=== PATIENT | male | born 1955 | race Caucasian/White ===

== ENCOUNTER 2017-02-17 19:55 | Emergency (ER) | payer MEDICARE ==
[~2017-02-17] VITALS: Ht 177.8 cm; Wt 111.8 kg
[2017-02-17 20:04] VITALS: BP 192/113; PULSE 99; RESP 12; TEMP 99; O2SAT 95
[2017-02-17] MEDS ORDERED: SODIUM CHLORIDE 0.9% FLUSH 10 ML FLUSH IV FLUSH PRN (20:15)
[2017-02-17] MEDS ORDERED: MORPHINE SULFATE 4 MG/ML INJ IV PUSH ONE (20:15)
[2017-02-17] MEDS ORDERED: ONDANSETRON HCL 4 MG/2 ML VIAL IVP ONE (20:15)
--- NOTE | 2017-02-17 20:18 | PD ---
HPI Chief Complaint: Injury Time Seen by Provider: 20:14 Travel History International Travel<30 days: No Contact w/Intl Traveler<30days: No Traveled to known affect area: No History of Present Illness HPI 62-year-old male presents to the emergency department status post fall from his scooter from being pulled over by his dog that he was walking. Patient fell sideways onto the lawn injuring his right shoulder. Patient has created a sling out of his belt, holding the shoulder in a position of comfort. Patient denies numbness tingling or weakness in the needle straightener strength on the right. Patient denies any other injury. He denies hitting his head or loss of consciousness. Pain in the shoulders currently an 8/. He has no known drug allergies. [facility]LY [facility] Social History Alcohol Use: No Tobacco Use: Yes Substance Use: No Allergies-Medications (Allergen,Severity, Reaction): Coded Allergies: No Known Allergies (Unverified , 02/17/17) Reported Meds & Prescriptions Reported Meds & Active Scripts Active Reported Aspirin 325 Mg Tab 325 Mg PO DAILY Metformin (Metformin HCl) 500 Mg Tab 500 Mg PO BIDPC With meals Lisinopril 20 Mg Tab 20 Mg PO DAILY Methadose (Methadone HCl) 40 Mg Tab 60 Mg PO BID Review of Systems Except as stated in HPI: all other systems reviewed are Neg General / Constitutional: No: Fever Eyes: No: Visual changes HENT: No: Headaches Cardiovascular: No: Chest Pain or Discomfort Respiratory: No: Shortness of Breath Gastrointestinal: No: Abdominal Pain Genitourinary: No: Dysuria Musculoskeletal: Positive: Arthralgias, Limited ROM, Pain Skin: No Rash Neurologic: No: Weakness Psychiatric: No: Depression Endocrine: No: Polydipsia Hematologic/Lymphatic: No: Easy Bruising Physical Exam Narrative GENERAL: Patient appears in mild to moderate distress. SKIN: Warm and dry. Normal color. Normal turgor. No abrasions. No ecchymosis. No open wounds. HEAD: Atraumatic. Normocephalic. EYES: Pupils equal and round. No scleral icterus. No injection or drainage. ENT: No nasal bleeding or discharge. Mucous membranes pink and moist. No dental injury. Pharynx is clear. Airway is patent. NECK: Trachea midline. No bony tenderness or step-off. Range of motion is full and nontender. CARDIOVASCULAR: Regular rate and rhythm. RESPIRATORY: No accessory muscle use. Clear to auscultation. Breath sounds equal bilaterally. GASTROINTESTINAL: Abdomen soft, non-tender, nondistended. Hepatic and splenic margins not palpable. MUSCULOSKELETAL: Extremities without clubbing, cyanosis, or edema. Question deformity in the right shoulder suggestive of dislocation. Range of motion of the right shoulder is very limited secondary to pain. Exam is limited as well. Patient has normal neurovascular exam of the right hand. NEUROLOGICAL: Awake and alert. No obvious cranial nerve deficits. Motor grossly within normal limits. Five out of 5 muscle strength in the arms and legs. Normal speech. PSYCHIATRIC: Appropriate mood and affect; insight and judgment normal. Data Data Last Documented VS Vital Signs Date Time Temp Pulse Resp B/P Pulse Ox O2 Delivery O2 Flow Rate FiO2 02/17/17 20:40 22 02/17/17 20:35 91 Room Air 02/17/17 20:14 02/17/17 20:04 99.0 99 Orders Complete Blood Count With Diff (02/17/17 20:12) Comprehensive Metabolic Panel (02/17/17 20:12) Prothrombin Time / Inr (Pt) (02/17/17 20:12) Act Partial Throm Time (Ptt) (02/17/17 20:12) Iv Access Insert/Monitor (02/17/17 20:12) Ecg Monitoring (02/17/17 20:12) Oximetry (02/17/17 20:12) NPO (02/17/17 20:12) Morphine Inj (Morphine Inj) (02/17/17 20:15) Ondansetron Inj (Zofran Inj) (02/17/17 20:15) Sodium Chloride 0.9% Flush (Ns Flush) (02/17/17 20:15) Shoulder, Complete (>2vws) (02/17/17 20:12) Ice/Cold Pack (02/17/17 20:12) Ketorolac Inj (Toradol Inj) (02/17/17 21:00) Splint Or Brace Apply/Monitor (02/17/17 20:52) Ketorolac Inj (Toradol Inj) (02/17/17 21:00) Labs Laboratory Tests Test 02/17/17 20:15 White Blood Count 10.0 TH/MM3 Red Blood Count 5.08 MIL/MM3 Hemoglobin 13.9 GM/DL Hematocrit 43.3 % Mean Corpuscular Volume 85.3 FL Mean Corpuscular Hemoglobin 27.4 PG Mean Corpuscular Hemoglobin 32.2 % Concent Red Cell Distribution Width 14.6 % Platelet Count 257 TH/MM3 Mean Platelet Volume 7.4 FL Neutrophils (%) (Auto) 62.2 % Lymphocytes (%) (Auto) 24.2 % Monocytes (%) (Auto) 8.1 % Eosinophils (%) (Auto) 2.7 % Basophils (%) (Auto) 2.8 % Neutrophils # (Auto) 6.2 TH/MM3 Lymphocytes # (Auto) 2.4 TH/MM3 Monocytes # (Auto) 0.8 TH/MM3 Eosinophils # (Auto) 0.3 TH/MM3 Basophils # (Auto) 0.3 TH/MM3 CBC Comment DIFF FINAL Differential Comment Sodium Level 135 MEQ/L Potassium Level 4.6 MEQ/L Chloride Level 98 MEQ/L Carbon Dioxide Level 26.8 MEQ/L Anion Gap 10 MEQ/L Blood Urea Nitrogen 18 MG/DL Creatinine 1.20 MG/DL Estimat Glomerular Filtration 62 ML/MIN Rate Random Glucose 193 MG/DL Calcium Level 8.8 MG/DL Total Bilirubin 0.3 MG/DL Aspartate Amino Transf 15 U/L (AST/SGOT) Alanine Aminotransferase 16 U/L (ALT/SGPT) Alkaline Phosphatase 73 U/L Total Protein 8.5 GM/DL Albumin 3.3 GM/DL [facility] Medical Decision Making Medical Screen Exam Complete: Yes Emergency Medical Condition: Yes Differential Diagnosis Fall. Shoulder contusion. Shoulder dislocation. Shoulder fracture. Narrative Course Patient is medically stable at time of exam. IV access is obtained and patient has CBC, CMP, and coagulation studies drawn. Patient is given 4 mg Zofran IV as well as 4 mg morphine IV. X-ray of the right shoulder is ordered. X-ray shows no acute fracture dislocation. There is a slight AC separation. Patient is placed in a sling and swath. Patient is given 30 mg Toradol IV. Patient to continue his methadone 60 mg 3 times a day. Patient also take ibuprofen 600 mg 4 times a day #40. Patient is to wear the sling and swath until seen by orthopedist. Patient is to ice the area frequently. Patient to call Dr. Booth for orthopedic follow-up. Diagnosis Primary Impression: Right shoulder injury Qualified Code: S49.91XA - Right shoulder injury, initial encounter Additional Impression: AC separation Qualified Code: S43.101A - AC separation, right, initial encounter Referrals: Daniel Booth MD Patient Instructions: General Instructions, Rotator Cuff Injury (ED) Additional Instructions: X-ray shows no acute fracture dislocation. There is a slight AC separation. Patient is placed in a sling and swath. Patient is given 30 mg Toradol IV. Patient is continue his methadone 60 mg 3 times a day. Patient also take ibuprofen 600 mg 4 times a day #40. Patient is to wear the sling and swath until seen by orthopedist. Patient is to ice the area frequently. Patient to call Dr. Booth for orthopedic follow-up. Med/Other Pt SpecificInfo: Prescription(s) given Scripts Ibuprofen 600 Mg [id number] Mg PO Q6H PRN (Pain/Inflammation) #40 TAB Prov:Rich Valdivia MD 02/17/17 Disposition: 01 DISCHARGE HOME Condition: Stable Zion Galvan February 17, 2017 20:18
[2017-02-17] MEDS ORDERED: METH40TA2 PO (20:21)
[2017-02-17] MEDS ORDERED: LISI-515 PO (20:21)
[2017-02-17] MEDS ORDERED: ASPI325T PO (20:21)
[2017-02-17] MEDS ORDERED: METF500T PO (20:21)
[2017-02-17 20:26] LABS: AUTOMATED NEUTROPHIL # 6.2 TH/MM3 (1.8-7.7); BASOPHIL # 0.3 TH/MM3 (0-0.2); BASOPHIL % 2.8 % (0.0-2.0); EOSINOPHIL # 0.3 TH/MM3 (0-0.4); EOSINOPHIL % 2.7 % (0.0-4.0); HEMATOCRIT 43.3 % (39.0-51.0); HEMO FLAGS DIFF FINAL; LYMPH % 24.2 % (9.0-44.0); LYMPHOCYTE # 2.4 TH/MM3 (1.0-4.8); MEAN CELL VOLUME 85.3 FL (80.0-100.0); MEAN CORPUSCULAR HEMOGLOBIN 27.4 PG (27.0-34.0); MEAN CORPUSCULAR HGB CONC 32.2 % (32.0-36.0); MONO % 8.1 % (0.0-8.0); NEUT % 62.2 % (16.0-70.0); PLATELET COUNT 257 TH/MM3 (150-450); RED BLOOD COUNT 5.08 MIL/MM3 (4.50-5.90); RED CELL DISTRIBUTION WIDTH 14.6 % (11.6-17.2)
[2017-02-17 20:35] VITALS: O2SAT 91
[2017-02-17 20:37] LABS: CHLORIDE 98 MEQ/L (98-107); POTASSIUM 4.6 MEQ/L (3.5-5.1); SODIUM (NA) 135 MEQ/L (136-145)
[2017-02-17 20:40] VITALS: RESP 22
[2017-02-17 20:41] LABS: ANION GAP 10 MEQ/L (5-15); BICARBONATE 26.8 MEQ/L (21.0-32.0); BLOOD UREA NITROGEN 18 MG/DL (7-18)
[2017-02-17 20:44] LABS: ALT (GPT) 16 U/L (12-78); AST (GOT) 15 U/L (15-37); GLOMERULAR FILTRATION RATE 62 ML/MIN (>89)
[2017-02-17 20:45] LABS: TOTAL BILIRUBIN ADULT 0.3 MG/DL (0.2-1.0)
[2017-02-17 20:46] LABS: ALKALINE PHOSPHATASE 73 U/L (45-117)
--- NOTE | 2017-02-17 20:50 | RADHPO ---
EXAM DATE/TIME: 02/17/2017 20:17 [facility] COMPARISON: No previous studies available for comparison. INDICATIONS : Right shoulder pain post fall yesterday. MEDICAL HISTORY : None. SURGICAL HISTORY : None. ENCOUNTER: Initial ACUITY: 2 days PAIN SCORE: 10/10 LOCATION: Right shoulder. FINDINGS: The glenohumeral relationship is intact with mild degenerative arthritic change.. Slight widening of the a.c. joint. Appears to be some radiodensity beneath the acromion which may be tendinous calcifica tion. The adjacent clavicle and ribs appear intact. CONCLUSION: Likely mild a.c. separation Leobardo Dominguez MD on February 17, 2017 at 20:46 Board Certified Radiologist. This report was verified electronically.
[2017-02-17] MEDS ORDERED: IBUP-232 PO (20:59)
[2017-02-17] MEDS ORDERED: KETOROLAC TROMETHAMINE 30 MG/ML (IVP) VIAL IV PUSH ONE (21:00)
[2017-02-17] MEDS ORDERED: KETOROLAC TROMETHAMINE 60 MG/2 ML (IM) VIAL IM ONE (21:00)
[2017-02-17 21:16] LABS: APTT (PATIENT) 27.5 SEC (24.3-30.1); PROTHROMBIN TIME - PATIENT 11.4 SEC (9.8-11.6)
== END 2017-02-17 21:15 | disposition home or self-care (01) ==
LOC: PHEFT 19:55
DX: S43.101A Unspecified dislocation of right acromioclavicular joint, initial encounter (principal); Z72.0 Tobacco use; W18.30XA Fall on same level, unspecified, initial encounter; Y93.K1 Activity, walking an animal; Y92.9 Unspecified place or not applicable; Y99.8 Other external cause status
CPT/HCPCS: 29240; 73030; 80053; 85025; 85610; 85730; 96374; 96375; 99283; J1885; J2270; J2405

== ENCOUNTER 2017-12-29 10:17 | Inpatient (IN) | payer MEDICARE ==
[~2017-12-29] VITALS: Ht 180.3 cm; Wt 109.0 kg
[~2017-12-29 10:17] MED LIST: ASPI-183 PO; IBUP-232 PO; LISI-515 PO; METF500T PO; METH40TA2 PO
[2017-12-29 11:33] VITALS: BP 163/80; PULSE 88; RESP 22; TEMP 98.5; O2SAT 93
--- NOTE | 2017-12-29 12:29 | RADRPT ---
EXAM DATE/TIME: 12/29/2017 12:04 [facility] COMPARISON: No previous studies available for comparison. INDICATIONS : Swelling of left foot. MEDICAL HISTORY : None. SURGICAL HISTORY : None. ENCOUNTER: Initial ACUITY: >1 year PAIN SCORE: 0/10 LOCATION: Bilateral chest FINDINGS: PA and lateral views of the chest demonstrate the lungs to be symmetrically aerated without evidence of mass, infiltrate or effusion. The cardiomediastinal contours are unremarkable. Osseous structure s are intact. CONCLUSION: No acute disease. Narayan Parry MD on December 29, 2017 at 12:27 Board Certified Radiologist. This report was verified electronically.
--- NOTE | 2017-12-29 12:32 | RADRPT ---
EXAM DATE/TIME: 12/29/2017 12:09 [facility] COMPARISON: No previous studies available for comparison. INDICATIONS : Pain and swelling of left foot. MEDICAL HISTORY : None. SURGICAL HISTORY : None. ENCOUNTER: Initial ACUITY: >1 year PAIN SCORE: 0/10 LOCATION: Left foot FINDINGS: Three view examination of the left foot demonstrates diffuse soft tissue swelling greatest involving the second toe. Small plantar calcaneal spur. Mild degenerative changes first metatarsal phalangeal j oint and interphalangeal joints. No fracture. The calcaneus is intact. Bony mineralization is karen l. CONCLUSION: 1. Soft tissue swelling greatest involving the second toe. 2. No fracture. 3. Plantar calcaneal spur. Narayan Parry MD on December 29, 2017 at 12:29 Board Certified Radiologist. This report was verified electronically.
[2017-12-29 13:04] LABS: AUTOMATED NEUTROPHIL # 10.7 TH/MM3 (1.8-7.7); BASOPHIL # 0.1 TH/MM3 (0-0.2); BASOPHIL % 0.6 % (0.0-2.0); EOSINOPHIL % 0.2 % (0.0-4.0); HEMATOCRIT 42.4 % (39.0-51.0); LYMPH % 13.2 % (9.0-44.0); LYMPHOCYTE # 1.8 TH/MM3 (1.0-4.8); MEAN CELL VOLUME 84.9 FL (80.0-100.0); MEAN PLATELET VOLUME 7.4 FL (7.0-11.0); MONO % 9.1 % (0.0-8.0); MONOCYTE # 1.3 TH/MM3 (0-0.9); NEUT % 76.9 % (16.0-70.0); PLATELET COUNT 208 TH/MM3 (150-450); RED BLOOD COUNT 4.99 MIL/MM3 (4.50-5.90); RED CELL DISTRIBUTION WIDTH 15.3 % (11.6-17.2); WHITE BLOOD COUNT 13.9 TH/MM3 (4.0-11.0)
[2017-12-29 13:14] LABS: BACTERIA, URINE RARE /hpf; BILIRUBIN, URINE NEG (NEG); BLOOD, URINE MOD (NEG); GLUCOSE,URINE NEG (NEG); HYALINE CAST, URINE 16 /lpf (RARE); KETONE, URINE NEG (NEG); MUCUS URINE MOD /lpf (OCC); NITRITE,URINE NEG (NEG); PH, URINE 5.5 (5.0-8.5); SQUAMOUS EPITHELIAL CELL URINE 1 /hpf (0-5); URINE COLOR DARK-YELLOW (YELLW/STRAW); URINE LEUKOCYTE ESTERASE NEG (NEG)
[2017-12-29 13:20] LABS: ALBUMIN 3.3 GM/DL (3.4-5.0); ALT (GPT) 15 U/L (12-78); AST (GOT) 12 U/L (15-37); BICARBONATE 28.8 MEQ/L (21.0-32.0); BLOOD UREA NITROGEN 24 MG/DL (7-18); CHLORIDE 92 MEQ/L (98-107); CREATININE 1.48 MG/DL (0.60-1.30); GLOMERULAR FILTRATION RATE 48 ML/MIN (>89); GLUCOSE,RANDOM 132 MG/DL (74-106); SODIUM (NA) 131 MEQ/L (136-145)
[2017-12-29 13:22] LABS: ALKALINE PHOSPHATASE 69 U/L (45-117); TOTAL BILIRUBIN ADULT 0.9 MG/DL (0.2-1.0); TOTAL PROTEIN 9.1 GM/DL (6.4-8.2)
[2017-12-29] MEDS ORDERED: PIPERACIL-TAZO 4.5 GM PREMIX 100 ML IV STA (17:03)
[2017-12-29] MEDS ORDERED: VANCOMYCIN INJ 1,000 MG in SODIUM CHLOR 0.9% 250 ML INJ 250 ML IV STA (17:03)
--- NOTE | 2017-12-29 17:07 | PD ---
HPI Chief Complaint: Pain: Acute or Chronic Time Seen by Provider: 17:03 Travel History International Travel<30 days: No Contact w/Intl Traveler<30days: No History of Present Illness HPI 62-year-old male patient with history of diabetes, presents to the ER today because he has noticed over several days that his left foot ulcer which has been chronic is becoming more painful and red and swollen. He has been having fevers. He denies any chest pains, trouble breathing, or other issues. Modifying Factors: None Associated Signs & Symptoms: Diabetic foot ulcer infection Risk Factors: Diabetic PFSH Past Medical History Hx Anticoagulant Therapy: Yes Cardiac Catheterization: Yes Cardiovascular Problems: Yes Coronary Artery Disease: Yes Diabetes: Yes Diminished Hearing: Yes Hypertension: Yes Musculoskeletal: Yes Immunizations Current: No Past Surgical History Coronary Stent: Yes Other Surgery: Yes (medication pump) Social History Alcohol Use: No Tobacco Use: Yes Substance Use: No Allergies-Medications (Allergen,Severity, Reaction): Coded Allergies: No Known Allergies (Unverified , 02/17/17) Reported Meds & Prescriptions Reported Meds & Active Scripts Active Ibuprofen 600 Mg Tab 600 Mg PO Q6H PRN Reported Aspirin 325 Mg Tab 325 Mg PO DAILY Metformin (Metformin HCl) 500 Mg Tab 500 Mg PO BIDPC With meals Lisinopril 20 Mg Tab 20 Mg PO DAILY Methadose (Methadone HCl) 40 Mg Tab 60 Mg PO BID Review of Systems Except as stated in HPI: all other systems reviewed are Neg Physical Exam Narrative GENERAL: Well-developed elderly white male patient currently in mild distress. Awake and oriented 3. SKIN: Focused skin assessment warm/dry. There is a 1 cm ulcer at the plantar surface of the left foot, with surrounding erythema and edema over the distal foot. Tender to palpation. HEAD: Atraumatic. Normocephalic. EYES: Pupils equal and round. No scleral icterus. No injection or drainage. ENT: No nasal bleeding or discharge. Mucous membranes pink and moist. NECK: Trachea midline. No JVD. CARDIOVASCULAR: Regular rate and rhythm. No murmur appreciated. RESPIRATORY: No accessory muscle use. Clear to auscultation. Breath sounds equal bilaterally. GASTROINTESTINAL: Abdomen soft, non-tender, nondistended. Hepatic and splenic margins not palpable. MUSCULOSKELETAL: No obvious deformities. No clubbing. No cyanosis. No edema. NEUROLOGICAL: Awake and alert. No obvious cranial nerve deficits. Motor grossly within normal limits. Normal speech. PSYCHIATRIC: Appropriate mood and affect; insight and judgment normal. Data Data Last Documented VS Vital Signs Date Time Temp Pulse Resp B/P (MAP) Pulse Ox O2 Delivery O2 Flow Rate FiO2 12/29/17 11:33 98.5 88 22 163/80 (107) 93 Orders Orders Foot, Complete ([id number]) (12/29/17 ) Sepsis Workup Initiated (12/29/17 ) Complete Blood Count With Diff (12/29/17 11:35) Comprehensive Metabolic Panel (12/29/17 11:35) Lactic Acid Sepsis Protocol (12/29/17 11:35) Urinalysis - C+S If Indicated (12/29/17 11:35) Blood Culture (12/29/17 11:35) Chest, Pa & Lat (12/29/17 11:35) Urine Culture (12/29/17 12:30) Sodium Chlor 0.9% 1000 Ml Inj (Ns 1000 M (12/29/17 17:15) Piperacil-Tazo 4.5 Gm Premix (Zosyn 4.5 (12/29/17 17:03) Vancomycin Inj (Vancomycin Inj) (12/29/17 17:03) Admit Order (Ed Use Only) (12/29/17 17:39) Labs Laboratory Tests Test 12/29/17 11:30 12/29/17 12:30 Lactic Acid Level 1.9 mmol/L White Blood Count 13.9 TH/MM3 Red Blood Count 4.99 MIL/MM3 Hemoglobin 14.0 GM/DL Hematocrit 42.4 % Mean Corpuscular Volume 84.9 FL Mean Corpuscular Hemoglobin 28.0 PG Mean Corpuscular Hemoglobin Concent 33.0 % Red Cell Distribution Width 15.3 % Platelet Count 208 TH/MM3 Mean Platelet Volume 7.4 FL Neutrophils (%) (Auto) 76.9 % Lymphocytes (%) (Auto) 13.2 % Monocytes (%) (Auto) 9.1 % Eosinophils (%) (Auto) 0.2 % Basophils (%) (Auto) 0.6 % Neutrophils # (Auto) 10.7 TH/MM3 Lymphocytes # (Auto) 1.8 TH/MM3 Monocytes # (Auto) 1.3 TH/MM3 Eosinophils # (Auto) 0.0 TH/MM3 Basophils # (Auto) 0.1 TH/MM3 CBC Comment DIFF FINAL Differential Comment Urine Color DARK-YELLOW Urine Turbidity HAZY Urine pH 5.5 Urine Specific [place] 1.029 Urine Protein 100 mg/dL Urine Glucose (UA) NEG mg/dL Urine Ketones NEG mg/dL Urine Occult Blood MOD Urine Nitrite NEG Urine Bilirubin NEG Urine Urobilinogen 2.0 MG/DL Urine Leukocyte Esterase NEG Urine RBC 7 /hpf Urine WBC 3 /hpf Urine Squamous Epithelial Cells 1 /hpf Urine Bacteria RARE /hpf Urine Hyaline Casts 16 /lpf Urine Granular Casts 1 /lpf Urine Mucus MOD /lpf Microscopic Urinalysis Comment CATH-CULTURE IND Blood Urea Nitrogen 24 MG/DL Creatinine 1.48 MG/DL Random Glucose 132 MG/DL Total Protein 9.1 GM/DL Albumin 3.3 GM/DL Calcium Level 9.0 MG/DL Alkaline Phosphatase 69 U/L Aspartate Amino Transf (AST/SGOT) 12 U/L Alanine Aminotransferase (ALT/SGPT) 15 U/L Total Bilirubin 0.9 MG/DL Sodium Level 131 MEQ/L Potassium Level 3.8 MEQ/L Chloride Level 92 MEQ/L Carbon Dioxide Level 28.8 MEQ/L Anion Gap 10 MEQ/L Estimat Glomerular Filtration Rate 48 ML/MIN MDM Medical Decision Making Medical Screen Exam Complete: Yes Emergency Medical Condition: Yes Medical Record Reviewed: Yes Interpretation(s) Laboratory Tests Test 12/29/17 11:30 12/29/17 12:30 White Blood Count 13.9 TH/MM3 (4.0-11.0) Neutrophils (%) (Auto) 76.9 % (16.0-70.0) Monocytes (%) (Auto) 9.1 % (0.0-8.0) Neutrophils # (Auto) 10.7 TH/MM3 (1.8-7.7) Monocytes # (Auto) 1.3 TH/MM3 (0-0.9) Urine Color DARK-YELLOW (YELLW/STRAW) Urine Turbidity HAZY (CLEAR) Urine Protein 100 mg/dL (NEG-TRACE) Urine Occult Blood MOD (NEG) Urine RBC 7 /hpf (0-3) Urine Bacteria RARE /hpf (NONE) Urine Mucus MOD /lpf (OCC) Blood Urea Nitrogen 24 MG/DL (7-18) Creatinine 1.48 MG/DL (0.60-1.30) Random Glucose 132 MG/DL (74-106) Total Protein 9.1 GM/DL (6.4-8.2) Albumin 3.3 GM/DL (3.4-5.0) Aspartate Amino Transf (AST/SGOT) 12 U/L (15-37) Sodium Level 131 MEQ/L (136-145) Chloride Level 92 MEQ/L (98-107) Estimat Glomerular Filtration Rate 48 ML/MIN (>89) Last 24 hours Impressions Chest X-Ray 12/29/17 1135 Signed Impressions: Service Date/Time: Friday, December 29, 2017 12:04 - CONCLUSION: No acute disease. Narayan Parry MD Foot X-Ray 12/29/17 0000 Signed Impressions: Service Date/Time: Friday, December 29, 2017 12:09 - CONCLUSION: 1. Soft tissue swelling greatest involving the second toe. 2. No fracture. 3. Plantar calcaneal spur. Narayan Parry MD Differential Diagnosis Sepsis versus osteomyelitis versus cellulitis Narrative Course IV antibiotics were initiated the ER after cultures were drawn. X-ray did not show signs of osteomyelitis. At this point, plan would be to admit patient for further treatment. Patient has leukocytosis and lactate elevation, signs of sepsis as well. Case is discussed with Dr. Ryder for admission. Diagnosis Primary Impression: Diabetic foot ulcer Additional Impressions: Cellulitis of foot Sepsis Admitting Information Admitting Physician Requests: Admit Tracey Fleming MD Dec 29, 2017 17:07
[2017-12-29] MEDS ORDERED: SODIUM CHLOR 0.9% 1000 ML INJ 1,000 ML IV ONE (17:15)
[2017-12-29] MEDS ORDERED: SODIUM CHLORIDE 0.9% FLUSH 10 ML FLUSH IV FLUSH PRN (17:45)
[2017-12-29] MEDS ORDERED: ONDANSETRON HCL 4 MG/2 ML VIAL IVP PRN (17:45)
[2017-12-29] MEDS ORDERED: BISACODYL 10 MG SUPP RECTAL PRN (17:45)
[2017-12-29] MEDS ORDERED: Vancomycin Consult Pharmacy 1 EA OTHER SCH (17:45)
[2017-12-29] MEDS ORDERED: SENNOSIDES 8.6 MG TAB PO PRN (17:45)
[2017-12-29] MEDS ORDERED: MAGNESIUM HYDROXIDE SUSP 30 ML CUP PO PRN (17:45)
[2017-12-29] MEDS ORDERED: NALOXONE HCL 0.4 MG/ML AMP IV PUSH PRN (17:45)
[2017-12-29] MEDS ORDERED: LACTULOSE SYRUP 20 GM/30 ML CUP PO PRN (17:45)
[2017-12-29 18:26] VITALS: BP 176/85; PULSE 90; RESP 18; O2SAT 95
[2017-12-29 18:50] VITALS: BP 172/84
[2017-12-29] MEDS: INSULIN ASPART SUPPLEMENTAL SCALE SQ SCH (21:00)
[2017-12-29] MEDS ORDERED: VANCOMYCIN 1,000 MG/NS 250 ML IV ONE ×2 (21:15)
[2017-12-29] MEDS: SODIUM CHLORIDE 0.9% FLUSH 10 ML FLUSH IV FLUSH SCH (21:38)
--- NOTE | 2017-12-29 22:48 | HHI.HP ---
[facility] Service [facility] Hospitalists Primary Care Physician Veto Lim MD Admission Diagnosis Diabetic foot infection/sepsis Diagnoses: (1) Cellulitis of foot Chief Complaint: Left second toe erythema and edema Travel History International Travel<30 Days: No Contact w/Intl Traveler <30 Da: No History of Present Illness Mr. Kendall is a 62-year-old male with a history of type 2 diabetes mellitus , coronary artery disease status post coronary stent placement 1995, hypertension, and chronic back pain who presented to the emergency room upon the recommendation of his supervisor [employer] to have his left second toe evaluated for cellulitis. He is unable to tell me the name of his supervisor [employer] but states that she does not do rounds here at [facility]. The patient is being admitted with podiatry consultation under the hospitalist service. The patient tells me that about 3 years ago, he stepped on a nail that penetrated his second toe and he had cellulitis following that. And eventually was effectively treated and he is had no further problems over the last couple of years. He noticed on Thursday night that the second toe on his left foot was starting to swell. By Thursday, it was now discolored red. He made an appointment on Thursday to see his supervisor [employer] Thursday when he saw her in the office she referred him directly to the emergency room. He also reports accompanying fever as high as 103, chills, fatigue, and generalized malaise. He denies any nausea, vomiting, diarrhea, black or bloody stools. He does have a history of left lower extremity DVT in 1988 and was on Coumadin for a short period of time. Left lower extremity is more swollen than the right and has some calf tightness noted upon examination. He reports inability to to feel much of anything from a prior back surgery in which he had multiple lumbar vertebral fusions. He also states he takes methadone 20 mg 3 times daily as needed for pain. His last dose of methadone was this morning. His pharmacy is [facility] on [address] in [facility]. We will need to verify his dosage when they open tomorrow. Methadone is obtained through a physician in [facility] Dr. Thompson. Review of Systems Except as stated in HPI: all other systems reviewed are Neg Past Family Social History Past Medical History type 2 diabetes mellitus, coronary artery disease status post coronary stent placement 1995, left lower extremity DVT in 1988, hypertension, and chronic back pain Denies asthma, COPD, liver problems, kidney problems, PE, CVA, seizures, thyroid problems, or cancer . Past Surgical History Coronary stent placed in 1995 Morphine pump placed 1995-has not been used since that time Right knee repair 1980s L1 through 6 fused November 07, 1988 . Reported Medications . Reported Meds & Active Scripts Active Reported Aspirin 325 Mg Tab 325 Mg PO DAILY Metformin (Metformin HCl) 500 Mg Tab 500 Mg PO BIDPC With meals Lisinopril 20 Mg Tab 20 Mg PO DAILY Methadose (Methadone HCl) 40 Mg Tab 60 Mg PO BID Allergies: Coded Allergies: No Known Allergies (Unverified Allergy, Unknown, 12/29/17) Family History Grandfather with a history of cancer and coronary artery disease Father with a history of coronary artery disease Denies family history of diabetes mellitus . Social History Tobacco: Has smoked 1/2-1 pack per day for 50 years Alcohol: Denies drinking alcohol Illicit Drugs: Reports history of cocaine and heroin abuse 35 years ago . Physical Exam Vital Signs Vital Signs Date Time Temp Pulse Resp B/P (MAP) Pulse Ox O2 Delivery O2 Flow Rate FiO2 12/29/17 18:50 80 18 172/84 (113) 97 12/29/17 18:26 90 18 176/85 (115) 95 Room Air 12/29/17 11:33 98.5 88 22 163/80 (107) 93 Physical Exam GENERAL: This is a disheveled appearing 62-year-old male patient, in no apparent distress. SKIN: No rashes. Cool and dry. Left second toe with significant erythema and edema extending up midway on the dorsal surface of the left foot. HEAD: Atraumatic. Normocephalic. EYES: No scleral icterus. No injection or drainage. ENT: Nose without bleeding, purulent drainage. NECK: Trachea midline. No JVD. CARDIOVASCULAR: Regular rate and rhythm without murmurs, gallops, or rubs. RESPIRATORY: Breath sounds diminished throughout lung kulkarni equal bilaterally. GASTROINTESTINAL: Abdomen soft, non-tender, nondistended. No guarding. MUSCULOSKELETAL: Left lower extremity with dark discoloration consistent with peripheral venous disease; left calf feels tight and somewhat warm and left lower extremity is more edematous than right. The patient is unable to feel more than pressure sensations and tightness in the lower extremities. Right lower extremity with no significant abnormalities. NEUROLOGICAL: Awake and alert. Motor and sensory grossly within normal limits. Normal speech. . Laboratory Laboratory Tests Test 12/29/17 11:30 12/29/17 12:30 Lactic Acid Level 1.9 White Blood Count 13.9 Red Blood Count 4.99 Hemoglobin 14.0 Hematocrit 42.4 Mean Corpuscular Volume 84.9 Mean Corpuscular Hemoglobin 28.0 Mean Corpuscular Hemoglobin Concent 33.0 Red Cell Distribution Width 15.3 Platelet Count 208 Mean Platelet Volume 7.4 Neutrophils (%) (Auto) 76.9 Lymphocytes (%) (Auto) 13.2 Monocytes (%) (Auto) 9.1 Eosinophils (%) (Auto) 0.2 Basophils (%) (Auto) 0.6 Neutrophils # (Auto) 10.7 Lymphocytes # (Auto) 1.8 Monocytes # (Auto) 1.3 Eosinophils # (Auto) 0.0 Basophils # (Auto) 0.1 CBC Comment DIFF FINAL Differential Comment Urine Color DARK-YELLOW Urine Turbidity HAZY Urine pH 5.5 Urine Specific [place] 1.029 Urine Protein 100 Urine Glucose (UA) NEG Urine Ketones NEG Urine Occult Blood MOD Urine Nitrite NEG Urine Bilirubin NEG Urine Urobilinogen 2.0 Urine Leukocyte Esterase NEG Urine RBC 7 Urine WBC 3 Urine Squamous Epithelial Cells 1 Urine Bacteria RARE Urine Hyaline Casts 16 Urine Granular Casts 1 Urine Mucus MOD Microscopic Urinalysis Comment CATH-CULTURE IND Blood Urea Nitrogen 24 Creatinine 1.48 Random Glucose 132 Total Protein 9.1 Albumin 3.3 Calcium Level 9.0 Alkaline Phosphatase 69 Aspartate Amino Transf (AST/SGOT) 12 Alanine Aminotransferase (ALT/SGPT) 15 Total Bilirubin 0.9 Sodium Level 131 Potassium Level 3.8 Chloride Level 92 Carbon Dioxide Level 28.8 Anion Gap 10 Estimat Glomerular Filtration Rate 48 Date/Time Source Procedure Growth Status 12/29/17 12:35 Blood Peripheral Aerobic Blood Culture Pending Received 12/29/17 12:35 Blood Peripheral Anaerobic Blood Culture Pending Received 12/29/17 12:30 Urine Catheterized Urine Urine Culture Pending Worksheet Result Diagram: 12/29/17 1230 12/29/17 1230 Imaging Last Impressions Chest X-Ray 12/29/17 1135 Signed Impressions: Service Date/Time: Friday, December 29, 2017 12:04 - CONCLUSION: No acute disease. Narayan Parry MD Foot X-Ray 12/29/17 0000 Signed Impressions: Service Date/Time: Friday, December 29, 2017 12:09 - CONCLUSION: 1. Soft tissue swelling greatest involving the second toe. 2. No fracture. 3. Plantar calcaneal spur. Narayan Parry MD Capagnes VTE Risk Assessment Caprini VTE Risk Assessment: Mod/High Risk (score >= 2) Caprini Risk Assessment Model Point Value = 1 Point Value = 2 Point Value = 3 Point Value = 5 Age 41-60 Minor surgery BMI > 25 kg/m2 Swollen legs Varicose veins or History of unexplained or recurrent spontaneous Oral contraceptives or hormone replacement Sepsis (< 1 month) Serious lung disease, including pneumonia (< 1 month) Abnormal pulmonary function Acute myocardial infarction Congestive heart failure (< 1 month) History of inflammatory bowel disease Medical patient at bed rest Age 61-74 Arthroscopic surgery Major open surgery (> 45 min) Laparoscopic surgery (> 45 min) Malignancy Confined to bed (> 72 hours) Immobilizing plaster cast Central venous access Age >= 75 History of VTE Family history of VTE Factor V Leiden Prothrombin [id number] Lupus anticoagulant Anticardiolipin antibodies Elevated serum homocysteine Heparin-induced thrombocytopenia Other congenital or acquired thrombophilia Stroke (< 1 month) Elective arthroplasty Hip, pelvis, or leg fracture Acute spinal cord injury (< 1 month) Prophylaxis Regimen Total Risk Factor Score Risk Level Prophylaxis Regimen 0-1 Low Early ambulation 2 Moderate Order ONE of the following: *Sequential Compression Device (SCD) *Heparin 5000 units SQ BID 3-4 Higher Order ONE of the following medications: *Heparin 5000 units SQ TID *Enoxaparin/Lovenox 40 mg SQ daily (WT < 150 kg, CrCl > 30 mL/min) *Enoxaparin/Lovenox 30 mg SQ daily (WT < 150 kg, CrCl > 10-29 mL/min) *Enoxaparin/Lovenox 30 mg SQ BID (WT < 150 kg, CrCl > 30 mL/min) AND/OR *Sequential Compression Device (SCD) 5 or more Highest Order ONE of the following medications: *Heparin 5000 units SQ TID (Preferred with Epidurals) *Enoxaparin/Lovenox 40 mg SQ daily (WT < 150 kg, CrCl > 30 mL/min) *Enoxaparin/Lovenox 30 mg SQ daily (WT < 150 kg, CrCl > 10-29 mL/min) *Enoxaparin/Lovenox 30 mg SQ BID (WT < 150 kg, CrCl > 30 mL/min) AND *Sequential Compression Device (SCD) Assessment and Plan Assessment and Plan Mr. Kendall is a 62-year-old male with a history of type 2 diabetes mellitus , coronary artery disease status post coronary stent placement 1995, hypertension, and chronic back pain who presented to the emergency room upon the recommendation of his supervisor [employer] to have his left second toe evaluated for cellulitis. The patient is being admitted with podiatry consultation under the hospitalist service. Left second toe cellulitis -Left foot x-ray demonstrates soft tissue swelling greatest involving second toe , no fracture, and plantar calcaneus heel spur -Antibiotics: IV vancomycin and Zosyn -Consult podiatry - patient follows with someone as an outpatient but is unable to tell me her name only that she does not round here at [facility] -Patient will be n.p.o. after midnight except meds in the event that any procedures need to be done in the morning by podiatry Left lower extremity swelling with history of DVT in 1988 -We will obtain Doppler ultrasound to rule out DVT Poorly controlled hypertension -Blood pressures 160s to 170s over 80s -Resume home lisinopril -As needed clonidine for blood pressure greater than 160/100 as long as heart rate is over 60 -Monitor trends in blood pressure readings and adjust treatments as indicated Acute kidney injury -BUN 24, creatinine 1.48, estimated GFR 48 -Received fluid bolus of normal saline 1 L in the ER -Avoid nephrotoxins -Recheck BMP in a.m. and follow results -Consider nephrology referral if symptoms persist Tobacco abuse -Consult extensively regarding adverse health effects of smoking -cessation advised -patient states he will not quit despite risks Chronic back pain -Patient states he takes methadone 20 mg 3 times daily p.o. as needed for pain - will need to verify dosage with [facility] on [facility] when the pharmacy opens in the morning -Morphine 3 mg IV every 3 hours as needed for pain greater than 4 DVT prophylaxis -Await Doppler ultrasound results Discussed Condition With Patient and Dr. Plata . Physician Certification 2 Midnight Certification Type: Admission for Inpatient Services Order for Inpatient Services The services are ordered in accordance with Medicare regulations or non- Medicare payer requirements, as applicable. In the case of services not specified as inpatient-only, they are appropriately provided as inpatient services in accordance with the 2-midnight benchmark. Estimated LOS (days): 3 days is the estimated time the patient will need to remain in the hospital, assuming treatment plan goals are met and no additional complications. Post-Hospital Plan: Home Yaz Powell Dec 29, 2017 22:48
[2017-12-29] MEDS ORDERED: MORPHINE SULFATE 4 MG/ML INJ IV PUSH PRN (23:30)
--- NOTE | 2017-12-29 23:46 | RADRPT ---
EXAM DATE/TIME: 12/29/2017 23:08 [place] COMPARISON: No previous studies available for comparison. EXTERNAL COMPARISON : [facility], US LEG, BILATERAL VENOUS, May 02, 2014[facility], US LEG BILATERAL VENO US, January 26, 2014. INDICATIONS : Left leg swelling. MEDICAL HISTORY : Myocardial infarction. Hypertension. Hearing loss. Numbness. Coronary artery disease. Anticoagula nt therapy. Arthritis. Diabetes. SURGICAL HISTORY : Coronary artery stent. Fusion, lumbar. Right knee replacement. ENCOUNTER: Initial ACUITY: 1 day PAIN SCORE: 1/10 LOCATION: Left leg. TECHNIQUE: Venous ultrasound of the leg was performed from the inguinal ligament to the proximal calf. Real-nakita e, color Doppler and spectral tracing, compression and augmentation techniques were used. FINDINGS: There is normal compressibility of the deep venous system from the inguinal region to the proximal ca lf. No echogenic clot is seen in the lumen of the common femoral, femoral, popliteal, and posterior tibial veins. There is a normal response of the venous system to proximal and distal augmentation an d respiration. CONCLUSION: Negative for deep venous thrombosis. Adam Barr MD on December 29, 2017 at 23:44 Board Certified Radiologist. This report was verified electronically.
[2017-12-30] MEDS: PIPERACIL-TAZO 3.375 GM PREMIX 50 ML IV SCH ×4 (00:49→18:39)
[2017-12-30 02:11] VITALS: BP 137/62; PULSE 74; RESP 18; TEMP 100.4; O2SAT 90
[2017-12-30 05:54] VITALS: BP 143/75; PULSE 75; RESP 20; TEMP 98.6; O2SAT 90
[2017-12-30 06:14] LABS: AUTOMATED NEUTROPHIL # 8.4 TH/MM3 (1.8-7.7); BASOPHIL % 0.4 % (0.0-2.0); EOSINOPHIL # 0.1 TH/MM3 (0-0.4); EOSINOPHIL % 1.2 % (0.0-4.0); HEMATOCRIT 36.3 % (39.0-51.0); HEMOGLOBIN 11.9 GM/DL (13.0-17.0); LYMPH % 14.2 % (9.0-44.0); LYMPHOCYTE # 1.6 TH/MM3 (1.0-4.8); MEAN CELL VOLUME 84.7 FL (80.0-100.0); MEAN CORPUSCULAR HEMOGLOBIN 27.8 PG (27.0-34.0); MEAN CORPUSCULAR HGB CONC 32.8 % (32.0-36.0); MEAN PLATELET VOLUME 7.3 FL (7.0-11.0); MONO % 10.9 % (0.0-8.0); MONOCYTE # 1.2 TH/MM3 (0-0.9); NEUT % 73.3 % (16.0-70.0); PLATELET COUNT 185 TH/MM3 (150-450); RED BLOOD COUNT 4.29 MIL/MM3 (4.50-5.90); RED CELL DISTRIBUTION WIDTH 15.1 % (11.6-17.2); WHITE BLOOD COUNT 11.4 TH/MM3 (4.0-11.0)
[2017-12-30 06:40] LABS: ALBUMIN 2.6 GM/DL (3.4-5.0); AST (GOT) 12 U/L (15-37); BICARBONATE 24.8 MEQ/L (21.0-32.0); BLOOD UREA NITROGEN 22 MG/DL (7-18); CALCIUM 8.3 MG/DL (8.5-10.1); CHLORIDE 99 MEQ/L (98-107); CREATININE 1.15 MG/DL (0.60-1.30); GLOMERULAR FILTRATION RATE 65 ML/MIN (>89); GLUCOSE,RANDOM 97 MG/DL (74-106); SODIUM (NA) 133 MEQ/L (136-145)
[2017-12-30 06:41] LABS: ALT (GPT) 13 U/L (12-78)
[2017-12-30 06:52] LABS: ALKALINE PHOSPHATASE 56 U/L (45-117); TOTAL BILIRUBIN ADULT 0.8 MG/DL (0.2-1.0); TOTAL PROTEIN 7.5 GM/DL (6.4-8.2)
[2017-12-30 07:13] VITALS: BP 167/86; PULSE 62; RESP 18; TEMP 98.8; O2SAT 90
[2017-12-30] MEDS: INSULIN ASPART SUPPLEMENTAL SCALE SQ SCH ×4 (08:25→22:18)
[2017-12-30] MEDS: SODIUM CHLORIDE 0.9% FLUSH 10 ML FLUSH IV FLUSH SCH ×2 (08:26→22:18)
[2017-12-30] MEDS: VANCOMYCIN INJ 1,250 MG in SODIUM CHLOR 0.9% 250 ML INJ 250 ML IV SCH ×2 (08:26→22:18)
[2017-12-30] MEDS: ASPIRIN 325 MG TAB PO SCH (08:26)
[2017-12-30] MEDS: LISINOPRIL 20 MG TAB PO SCH (08:26)
--- NOTE | 2017-12-30 08:49 | HHI.PR ---
Subjective Remarks Follow up left foot infection. Patient states that his pain is well controlled. Denies fever, chills, chest pain, dyspnea, nausea, vomiting. Objective Vitals Vital Signs Date Time Temp Pulse Resp B/P (MAP) Pulse Ox O2 Delivery O2 Flow Rate FiO2 12/30/17 07:13 98.8 62 18 167/86 (113) 90 12/30/17 05:54 98.6 75 20 143/75 (97) 90 12/30/17 02:11 100.4 74 18 137/62 (87) 90 12/29/17 18:50 80 18 172/84 (113) 97 12/29/17 18:26 90 18 176/85 (115) 95 Room Air 12/29/17 11:33 98.5 88 22 163/80 (107) 93 I/O 12/29/17 12/29/17 12/29/17 12/30/17 12/30/17 12/30/17 07:00 15:00 23:00 07:00 15:00 23:00 Intake Total 100 ml Output Total 400 ml Balance 100 ml -400 ml Intake IV Total 100 ml Output Urine Total 400 ml Result Diagram: 12/30/17 0550 12/30/17 0550 Imaging Last Impressions Chest X-Ray 12/29/17 1135 Signed Impressions: Service Date/Time: Friday, December 29, 2017 12:04 - CONCLUSION: No acute disease. Narayan Parry MD Lower Extremity Ultrasound 12/29/17 0000 Signed Impressions: Service Date/Time: Friday, December 29, 2017 23:08 - CONCLUSION: Negative for deep venous thrombosis. Adam Barr MD Foot X-Ray 12/29/17 0000 Signed Impressions: Service Date/Time: Friday, December 29, 2017 12:09 - CONCLUSION: 1. Soft tissue swelling greatest involving the second toe. 2. No fracture. 3. Plantar calcaneal spur. Narayan Parry MD Objective Remarks General: No acute distress. Heart: Regular rate and rhythm. No murmur. Lungs: Clear to auscultation bilaterally. No wheezes, rales, or rhonchi. Breathing is nonlabored. Abdomen: Soft, nontender, nondistended. Extremities: No right lower extremity edema. Left lower extremity has evidence of venous stasis. 1+ left lower extremity edema. There is significant erythema and swelling of the left second toe with erythema extending up the dorsal surface of the foot. Psych: Alert and oriented. Procedures None Urinary Catheter: No Vascular Central Line Catheter: No A/P Problem List: (1) Cellulitis of foot ICD Code: L03.119 - Cellulitis of unspecified part of limb Status: Acute Assessment and Plan 1. Left foot second toe cellulitis: X-ray shows soft tissue swelling. Continue IV antibiotics. Podiatry consultation is pending. 2. Left lower extremity swelling: Likely secondary to infection. Ultrasound is negative for DVT. 3. Hypertension: Continue lisinopril. Clonidine as needed. 4. Acute kidney injury: Improving. Continue IV fluids. Monitor labs. 5. Tobacco abuse: Counseled to quit smoking. 6. Chronic back pain: We will need to verify dosage of methadone with patient' s outpatient pharmacy. 7. DVT prophylaxis: COLE Arreaga. Avoid chemical prophylaxis in anticipation of possible surgery. Perico Oquendo MD Dec 30, 2017 08:49
[2017-12-30 11:15] VITALS: BP 136/69; PULSE 72; RESP 18; TEMP 98.7; O2SAT 94
[2017-12-30] MEDS: NS + KCL 20 MEQ INJ 1,000 ML IV SCH (12:20)
[2017-12-30] MEDS ORDERED: METH10TA PO (13:55)
[2017-12-30 15:22] VITALS: BP 146/79; PULSE 71; RESP 18; TEMP 98.8; O2SAT 95
[2017-12-30] MEDS ORDERED: BUPIVACAINE HCL PF 0.5% 30 ML VIAL ONE (17:23)
--- NOTE | 2017-12-30 19:39 | PD.CONS ---
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 Patient states he sees Dr. Phillips in office years ago he stepped on a nail which caused an infection ever since then his infection keeps recurring. He reports fevers over the weekend as high as 103 with associated chills fatigue nausea. Review of Systems Constitutional: COMPLAINS OF: Fever Endocrine: DENIES: Heat/cold intolerance Eyes: DENIES: Blurred vision Ears, nose, mouth, throat: DENIES: Tinnitus Respiratory: DENIES: Cough, Sputum production, Shortness of breath Cardiovascular: COMPLAINS OF: Lower Extremity Edema, DENIES: Chest pain, Palpitations Gastrointestinal: COMPLAINS OF: Nausea, DENIES: Abdominal pain, Diarrhea, Vomiting Musculoskeletal: COMPLAINS OF: Joint pain Neurologic: COMPLAINS OF: Localized weakness Psychiatric: DENIES: Anxiety, Confusion Past Family Social History Allergies: Coded Allergies: No Known Allergies (Unverified Allergy, Unknown, 12/29/17) Past Medical History As dictated in HPI Active Ordered Medications Last Impressions Chest X-Ray 12/29/17 1135 Signed Impressions: Service Date/Time: Friday, December 29, 2017 12:04 - CONCLUSION: No acute disease. Narayan Parry MD Lower Extremity Ultrasound 12/29/17 0000 Signed Impressions: Service Date/Time: Friday, December 29, 2017 23:08 - CONCLUSION: Negative for deep venous thrombosis. Adam Barr MD Foot X-Ray 12/29/17 0000 Signed Impressions: Service Date/Time: Friday, December 29, 2017 12:09 - CONCLUSION: 1. Soft tissue swelling greatest involving the second toe. 2. No fracture. 3. Plantar calcaneal spur. Narayan Parry MD Physical Exam Vital Signs Vital Signs Date Time Temp Pulse Resp B/P (MAP) Pulse Ox O2 Delivery O2 Flow Rate FiO2 12/30/17 15:22 98.8 71 18 146/79 (101) 95 12/30/17 11:15 98.7 72 18 136/69 (91) 94 12/30/17 07:13 98.8 62 18 167/86 (113) 90 12/30/17 05:54 98.6 75 20 143/75 (97) 90 12/30/17 02:11 100.4 74 18 137/62 (87) 90 Physical Exam GENERAL: This is a well-nourished, well-developed patient, in no apparent distress. SKIN: Abscess left plantar second metatarsal HEAD: Atraumatic. EYES: Pupils equal round and reactive. ENT: Airway patent. NECK: Trachea midline. RESPIRATORY: Nonlabored breathing. MUSCULOSKELETAL:. Negative Homans sign bilaterally. NEUROLOGICAL: Awake and alert. Normal speech. Lower extremity physical exam: Vascular: Dorsalis pedis 1 out of 4, posterior tibial nonpalpable. Capillary refill time within normal limits to digits 5 bilateral foot. Edema present left foot and ankle. Neuro: Gross sensation intact to bilateral lower extremity. Pinpoint sensation decreased to bilateral lower extremity. No hyperalgesia noted to bilateral lower extremity. Dermatology: Normal temperature and turgor to bilateral lower extremity. Plantar abscess noted with fluctuance and malodor, no active drainage, associated erythema and cellulitis extending into second metatarsal phalangeal joint. No open lesions noted to left foot. Increased erythema and edema noted to left foot and ankle. Musculoskeletal: Tender to palpation to left foot. Laboratory Laboratory Tests Test 12/30/17 05:50 White Blood Count 11.4 Red Blood Count 4.29 Hemoglobin 11.9 Hematocrit 36.3 Mean Corpuscular Volume 84.7 Mean Corpuscular Hemoglobin 27.8 Mean Corpuscular Hemoglobin Concent 32.8 Red Cell Distribution Width 15.1 Platelet Count 185 Mean Platelet Volume 7.3 Neutrophils (%) (Auto) 73.3 Lymphocytes (%) (Auto) 14.2 Monocytes (%) (Auto) 10.9 Eosinophils (%) (Auto) 1.2 Basophils (%) (Auto) 0.4 Neutrophils # (Auto) 8.4 Lymphocytes # (Auto) 1.6 Monocytes # (Auto) 1.2 Eosinophils # (Auto) 0.1 Basophils # (Auto) 0.0 CBC Comment DIFF FINAL Differential Comment Blood Urea Nitrogen 22 Creatinine 1.15 Random Glucose 97 Total Protein 7.5 Albumin 2.6 Calcium Level 8.3 Alkaline Phosphatase 56 Aspartate Amino Transf (AST/SGOT) 12 Alanine Aminotransferase (ALT/SGPT) 13 Total Bilirubin 0.8 Sodium Level 133 Potassium Level 3.5 Chloride Level 99 Carbon Dioxide Level 24.8 Anion Gap 9 Estimat Glomerular Filtration Rate 65 Date/Time Source Procedure Growth Status 12/29/17 12:35 Blood Peripheral Aerobic Blood Culture - Preliminary NO GROWTH IN 1 DAY Resulted 12/29/17 12:35 Blood Peripheral Anaerobic Blood Culture - Preliminary NO GROWTH IN 1 DAY Resulted 12/29/17 12:30 Urine Catheterized Urine Urine Culture - Preliminary NO GROWTH IN 24 HOURS. Resulted Result Diagram: 12/30/17 0550 12/30/17 0550 Imaging Last Impressions Chest X-Ray 12/29/17 1135 Signed Impressions: Service Date/Time: Friday, December 29, 2017 12:04 - CONCLUSION: No acute disease. Narayan Parry MD Lower Extremity Ultrasound 12/29/17 0000 Signed Impressions: Service Date/Time: Friday, December 29, 2017 23:08 - CONCLUSION: Negative for deep venous thrombosis. Adam Barr MD Foot X-Ray 12/29/17 0000 Signed Impressions: Service Date/Time: Friday, December 29, 2017 12:09 - CONCLUSION: 1. Soft tissue swelling greatest involving the second toe. 2. No fracture. 3. Plantar calcaneal spur. Narayan Parry MD Assessment and Plan Assessment and Plan 62-year-old male with left plantar second metatarsal abscess Patient examined and evaluated with all questions answered Incision and drainage with bone biopsy performed bedside Consent obtained and appropriate timeout taken with nurse bedside, left lower extremity marked Deep culture taken, second metatarsal sent for path and micro Decision for bone biopsy was made because patient states he is unable to have an MRI secondary to a pain pump implant which was placed approximately 30 years ago Upon incision and drainage copious amount of purulent drainage noted approximately 20 cc Patient will need surgical debridement as well as possible second metatarsal head resection Description of procedure: Once appropriate timeout was taken identifying the correct site surgery, correct patient and medical record number Betadine was used to scrub and prepped left foot. 20 cc 0.5% Marcaine plain infiltrated about the left foot. 15 blade was utilized to make a 3 cm incision at which time copious purulent drainage was expelled from left foot. Deep culture was taken. Excisional debridement performed. Copious irrigation consisting of 2 L of normal saline. Jamshidi needle utilized to perform bone biopsy to second metatarsal head, bone sent for micro and pathology. Half-inch plain packing placed to left foot plantar second metatarsal head followed by 4 x 4's cast padding and Félix. Will await pathology and micro results Plan for surgical intervention later this week Yamileth Brown DPM Dec 30, 2017 19:39
[2017-12-31] VITALS (7 sets, daily range): BP systolic 134–164; BP diastolic 66–85; PULSE 64–77; RESP 14–21; TEMP 97.6–98.6; O2SAT 93–96
[2017-12-31] MEDS: PIPERACIL-TAZO 3.375 GM PREMIX 50 ML IV SCH ×4 (00:29→17:57)
[2017-12-31 06:08] LABS: AUTOMATED NEUTROPHIL # 6.7 TH/MM3 (1.8-7.7); BASOPHIL # 0.1 TH/MM3 (0-0.2); BASOPHIL % 0.6 % (0.0-2.0); EOSINOPHIL # 0.2 TH/MM3 (0-0.4); EOSINOPHIL % 2.6 % (0.0-4.0); HEMATOCRIT 35.8 % (39.0-51.0); LYMPH % 15.5 % (9.0-44.0); LYMPHOCYTE # 1.5 TH/MM3 (1.0-4.8); MEAN CORPUSCULAR HEMOGLOBIN 28.1 PG (27.0-34.0); MEAN CORPUSCULAR HGB CONC 33.4 % (32.0-36.0); MEAN PLATELET VOLUME 7.6 FL (7.0-11.0); MONO % 11.6 % (0.0-8.0); MONOCYTE # 1.1 TH/MM3 (0-0.9); NEUT % 69.7 % (16.0-70.0); PLATELET COUNT 208 TH/MM3 (150-450); RED BLOOD COUNT 4.26 MIL/MM3 (4.50-5.90); RED CELL DISTRIBUTION WIDTH 15.1 % (11.6-17.2); WHITE BLOOD COUNT 9.6 TH/MM3 (4.0-11.0)
[2017-12-31 06:42] LABS: BICARBONATE 25.3 MEQ/L (21.0-32.0); CALCIUM 8.4 MG/DL (8.5-10.1); CREATININE 1.14 MG/DL (0.60-1.30)
[2017-12-31] MEDS ORDERED: PHARMACY ORDERED LAB ONE (07:45)
[2017-12-31] MEDS: INSULIN ASPART SUPPLEMENTAL SCALE SQ SCH ×4 (08:43→21:00)
[2017-12-31] MEDS: ASPIRIN 325 MG TAB PO SCH (08:45)
[2017-12-31] MEDS: SODIUM CHLORIDE 0.9% FLUSH 10 ML FLUSH IV FLUSH SCH ×2 (08:45→22:26)
[2017-12-31] MEDS: LISINOPRIL 20 MG TAB PO SCH (08:45)
[2017-12-31] MEDS: NS + KCL 20 MEQ INJ 1,000 ML IV SCH (08:45)
[2017-12-31] MEDS: VANCOMYCIN INJ 1,250 MG in SODIUM CHLOR 0.9% 250 ML INJ 250 ML IV SCH ×2 (11:02→22:26)
--- NOTE | 2017-12-31 13:44 | HHI.PR ---
Subjective Remarks Follow-up abscess. Status post bedside debridement with bone biopsy. Patient states that his pain is well controlled. Denies chest pain, dyspnea, nausea, vomiting, diarrhea, constipation. Objective Vitals Vital Signs Date Time Temp Pulse Resp B/P (MAP) Pulse Ox O2 Delivery O2 Flow Rate FiO2 12/31/17 12:34 98.0 77 21 138/69 (92) 94 12/31/17 08:42 97.6 64 16 134/76 (95) 93 12/31/17 01:43 98.6 76 14 135/70 (91) 93 12/30/17 23:36 21 12/30/17 15:22 98.8 71 18 146/79 (101) 95 I/O 12/30/17 12/30/17 12/30/17 12/31/17 12/31/17 12/31/17 07:00 15:00 23:00 07:00 15:00 23:00 Intake Total 312.5 ml 50 ml Output Total 400 ml 500 ml 700 ml Balance -400 ml 312.5 ml -500 ml -700 ml 50 ml Intake IV Total 312.5 ml 50 ml Output Urine Total 400 ml 500 ml 700 ml # Voids 2 2 1 # Bowel Movements 1 1 Result Diagram: 12/31/17 0526 12/31/17 0526 Imaging Last Impressions Chest X-Ray 12/29/17 1135 Signed Impressions: Service Date/Time: Friday, December 29, 2017 12:04 - CONCLUSION: No acute disease. Narayan Parry MD Lower Extremity Ultrasound 12/29/17 0000 Signed Impressions: Service Date/Time: Friday, December 29, 2017 23:08 - CONCLUSION: Negative for deep venous thrombosis. Adam Barr MD Foot X-Ray 12/29/17 0000 Signed Impressions: Service Date/Time: Friday, December 29, 2017 12:09 - CONCLUSION: 1. Soft tissue swelling greatest involving the second toe. 2. No fracture. 3. Plantar calcaneal spur. Narayan Parry MD Objective Remarks General: No acute distress. Heart: Regular rate and rhythm. No murmur. Lungs: Clear to auscultation bilaterally. No wheezes, rales, or rhonchi. Breathing is nonlabored. Abdomen: Soft, nontender, nondistended. Extremities: No right lower extremity edema. Left foot bandaged. Psych: Alert and oriented. Procedures 12/30/17 incision and drainage with bone biopsy at bedside Urinary Catheter: No Vascular Central Line Catheter: No A/P Problem List: (1) Cellulitis of foot ICD Code: L03.119 - Cellulitis of unspecified part of limb Status: Acute (2) Abscess of left foot ICD Code: L02.612 - Cutaneous abscess of left foot Assessment and Plan 1. Left foot second toe cellulitis/abscess: X-ray shows soft tissue swelling. Continue IV antibiotics. Appreciate podiatry recommendations. Status post bedside incision and drainage with bone biopsy. Cultures are pending. Podiatry planning on further surgery later this week. 2. Left lower extremity swelling: Likely secondary to infection. Ultrasound is negative for DVT. 3. Hypertension: Continue lisinopril. Clonidine as needed. 4. Acute kidney injury: Improving. Continue IV fluids. Monitor labs. 5. Tobacco abuse: Counseled to quit smoking. 6. Chronic back pain: We will need to verify dosage of methadone with patient' s outpatient pharmacy. 7. DVT prophylaxis: COLE Arreaga. Avoid chemical prophylaxis in anticipation of possible surgery. Discharge Planning When cleared by podiatry. Perico Oquendo MD Dec 31, 2017 13:44
[2018-01-01] MEDS: PIPERACIL-TAZO 3.375 GM PREMIX 50 ML IV SCH ×4 (01:54→18:26)
[2018-01-01 03:17] VITALS: BP 151/89; PULSE 69; RESP 17; TEMP 98.6; O2SAT 94
[2018-01-01] MEDS: INSULIN ASPART SUPPLEMENTAL SCALE SQ SCH ×4 (08:00→21:00)
[2018-01-01 08:31] VITALS: BP 177/91; PULSE 68; RESP 18; TEMP 97.6; O2SAT 94
--- NOTE | 2018-01-01 08:43 | HHI.PR ---
Subjective Remarks Follow-up abscess, left foot. Patient denies pain currently. States that he wants to go home. No other complaints at this time. Objective Vitals Vital Signs Date Time Temp Pulse Resp B/P (MAP) Pulse Ox O2 Delivery O2 Flow Rate FiO2 01/01/18 08:31 97.6 68 18 177/91 (119) 94 01/01/18 03:17 98.6 69 17 151/89 (109) 94 12/31/17 23:28 98.1 77 17 140/78 (98) 95 12/31/17 20:37 96 12/31/17 20:07 98.2 73 17 148/66 (93) 94 12/31/17 17:10 98.0 70 20 164/85 (111) 95 12/31/17 12:34 98.0 77 21 138/69 (92) 94 12/31/17 08:42 97.6 64 16 134/76 (95) 93 I/O 12/31/17 12/31/17 12/31/17 01/01/18 01/01/18 01/01/18 07:00 15:00 23:00 07:00 15:00 23:00 Intake Total 50 ml 362.5 ml Output Total 700 ml Balance -700 ml 50 ml 362.5 ml Intake IV Total 50 ml 362.5 ml Output Urine Total 700 ml # Voids 2 1 # Bowel Movements 1 Result Diagram: 12/31/17 0526 12/31/17 0526 Imaging Last Impressions Chest X-Ray 12/29/17 1135 Signed Impressions: Service Date/Time: Friday, December 29, 2017 12:04 - CONCLUSION: No acute disease. Narayan Parry MD Lower Extremity Ultrasound 12/29/17 0000 Signed Impressions: Service Date/Time: Friday, December 29, 2017 23:08 - CONCLUSION: Negative for deep venous thrombosis. Adam Barr MD Foot X-Ray 12/29/17 0000 Signed Impressions: Service Date/Time: Friday, December 29, 2017 12:09 - CONCLUSION: 1. Soft tissue swelling greatest involving the second toe. 2. No fracture. 3. Plantar calcaneal spur. Narayan Parry MD Objective Remarks General: No acute distress. Heart: Regular rate and rhythm. No murmur. Lungs: Clear to auscultation bilaterally. No wheezes, rales, or rhonchi. Breathing is nonlabored. Abdomen: Soft, nontender, nondistended. Extremities: No right lower extremity edema. Left foot bandaged. Psych: Alert and oriented. Procedures 12/30/17 incision and drainage with bone biopsy at bedside Urinary Catheter: No Vascular Central Line Catheter: No A/P Problem List: (1) Cellulitis of foot ICD Code: L03.119 - Cellulitis of unspecified part of limb Status: Acute (2) Abscess of left foot ICD Code: L02.612 - Cutaneous abscess of left foot Assessment and Plan 1. Left foot second toe cellulitis/abscess: X-ray showed soft tissue swelling. Continue IV antibiotics. Appreciate podiatry recommendations. Status post bedside incision and drainage with bone biopsy. Cultures are negative so far. Podiatry apparently planning on further surgery later this week. 2. Left lower extremity swelling: Likely secondary to infection. Ultrasound is negative for DVT. 3. Hypertension: Continue lisinopril. Clonidine as needed. 4. Acute kidney injury: Improving. Continue IV fluids. Monitor labs. 5. Tobacco abuse: Counseled to quit smoking. 6. Chronic back pain: Patient reportedly takes methadone at home. This has not yet been verified with the patient's pharmacy. 7. DVT prophylaxis: COLE Arreaga. Avoid chemical prophylaxis in anticipation of possible need for further surgical intervention. Discharge Planning When cleared by podiatry. Perico Oquendo MD Jan 01, 2018 08:43
[2018-01-01] MEDS: LISINOPRIL 20 MG TAB PO SCH (09:30)
[2018-01-01] MEDS: ASPIRIN 325 MG TAB PO SCH (09:30)
[2018-01-01] MEDS: SODIUM CHLORIDE 0.9% FLUSH 10 ML FLUSH IV FLUSH SCH ×2 (10:23→21:49)
[2018-01-01] MEDS: VANCOMYCIN INJ 1,250 MG in SODIUM CHLOR 0.9% 250 ML INJ 250 ML IV SCH ×2 (10:23→21:48)
[2018-01-01] MEDS: NS + KCL 20 MEQ INJ 1,000 ML IV SCH (10:24)
[2018-01-01 13:05] VITALS: BP 179/84; PULSE 68; RESP 18; TEMP 98.7; O2SAT 93
[2018-01-01 17:56] VITALS: BP 178/80; PULSE 72; RESP 18; TEMP 98.6; O2SAT 94
--- NOTE | 2018-01-01 19:44 | HHI.PR ---
Subjective Remarks Patient seen bedside. He was frustrated with how long everything takes at the hospital. States he does not want another second opinion he changes his mind however he did say that out of frustration because he thought it would help him leave the hospital faster. Objective Vital Signs Date Time Temp Pulse Resp B/P (MAP) Pulse Ox O2 Delivery O2 Flow Rate FiO2 01/01/18 17:56 98.6 72 18 178/80 (112) 94 01/01/18 13:05 98.7 68 18 179/84 (115) 93 01/01/18 08:31 97.6 68 18 177/91 (119) 94 01/01/18 03:17 98.6 69 17 151/89 (109) 94 12/31/17 23:28 98.1 77 17 140/78 (98) 95 12/31/17 20:37 96 12/31/17 20:07 98.2 73 17 148/66 (93) 94 I/O 12/31/17 12/31/17 12/31/17 01/01/18 01/01/18 01/01/18 07:00 15:00 23:00 07:00 15:00 23:00 Intake Total 50 ml 362.5 ml Output Total 700 ml 800 ml Balance -700 ml 50 ml 362.5 ml -800 ml Intake IV Total 50 ml 362.5 ml Output Urine Total 700 ml 800 ml # Voids 2 1 # Bowel Movements 1 Result Diagram: 12/31/17 0526 12/31/17 0526 Imaging Last Impressions Chest X-Ray 12/29/17 1135 Signed Impressions: Service Date/Time: Friday, December 29, 2017 12:04 - CONCLUSION: No acute disease. Narayan Parry MD Lower Extremity Ultrasound 12/29/17 0000 Signed Impressions: Service Date/Time: Friday, December 29, 2017 23:08 - CONCLUSION: Negative for deep venous thrombosis. Adam Barr MD Foot X-Ray 12/29/17 0000 Signed Impressions: Service Date/Time: Friday, December 29, 2017 12:09 - CONCLUSION: 1. Soft tissue swelling greatest involving the second toe. 2. No fracture. 3. Plantar calcaneal spur. Narayan Parry MD Procedures s/p bedside I&D with bone biopsy to left foot Other Results Microbiology Date/Time Source Procedure Growth Status 12/29/17 12:35 Blood Peripheral Aerobic Blood Culture - Preliminary NO GROWTH IN 3 DAYS Resulted 12/29/17 12:35 Blood Peripheral Anaerobic Blood Culture - Preliminary NO GROWTH IN 3 DAYS Resulted 12/29/17 12:30 Urine Catheterized Urine Urine Culture - Final NO GROWTH IN 48 HOURS. Complete 12/30/17 18:08 Wound Bone Gram Stain - Final Complete 12/30/17 18:08 Wound Culture - Final Bacteroides Species Complete Objective Remarks Lower extremity physical exam: Vascular: Dorsalis pedis 1 out of 4, posterior tibial nonpalpable. Capillary refill time within normal limits to digits 5 bilateral foot. Edema present left foot and ankle. Neuro: Gross sensation intact to bilateral lower extremity. Pinpoint sensation decreased to bilateral lower extremity. No hyperalgesia noted to bilateral lower extremity. Dermatology: Normal temperature and turgor to bilateral lower extremity. Plantar wound noted with no active drainage of purulence on compression, associated erythema and cellulitis extending into second metatarsal phalangeal joint which has not resolved. No open lesions noted to left foot. Increased erythema and edema noted to left foot and ankle. Musculoskeletal: Tender to palpation to left foot. Medications and IVs Current Medications Medications (Trade) Dose Ordered Sig/Angy Route Start Time Stop Time Status Last Admin Pharmacy Profile Note 0 ml @ 0 mls/hr UNSCH OTHER 12/29/17 17:45 Piperacillin Sod/ Tazobactam Sod 50 ml @ 100 mls/hr Q6H IV 12/30/17 00:00 01/01/18 18:26 (NovoLOG SUPPLEMENTAL SCALE) 1 ACHS SLIDING SCALE SQ 12/29/17 21:00 01/01/18 13:12 (NS Flush) 2 ml UNSCH PRN IV FLUSH 12/29/17 17:45 (NS Flush) 2 ml BID IV FLUSH 12/29/17 21:00 01/01/18 10:23 (Zofran Inj) 4 mg Q6H PRN IVP 12/29/17 17:45 (Narcan Inj) 0.4 mg UNSCH PRN IV PUSH 12/29/17 17:45 (Milk Of Magnesia Liq) 30 ml Q12H PRN PO 12/29/17 17:45 (Senokot) 17.2 mg Q12H PRN PO 12/29/17 17:45 (Dulcolax Supp) 10 mg DAILY PRN RECTAL 12/29/17 17:45 (Lactulose Liq) 30 ml DAILY PRN PO 12/29/17 17:45 Vancomycin HCl 1250 mg/Sodium Chloride 262.5 ml @ 250 mls/hr Q12H IV 12/30/17 08:00 01/01/18 10:23 (Catapres) 0.1 mg Q6H PRN PO 12/29/17 22:15 (Prinivil) 20 mg DAILY PO 12/30/17 09:00 01/01/18 09:30 (Aspirin) 325 mg DAILY PO 12/30/17 09:00 01/01/18 09:30 (Morphine Inj) 3 mg Q3H PRN IV PUSH 12/29/17 23:30 Potassium Chloride/Sodium Chloride 1,000 ml @ 42 mls/hr [id number] IV 12/30/17 09:00 01/01/18 10:24 Miscellaneous Information SPECIFIC LAB TO BE DRAWN:[facility] TROUGH DATE TO... ONCE ONCE .XX 01/02/18 07:45 01/02/18 07:46 Assessment and Plan Assessment and Plan 62-year-old male with left plantar second metatarsal abscess Patient examined and evaluated with all questions answered Discussed pathology results bone biopsy pathology + for OM Patient is being worked up by Vascular surgery If vascular status intact and no intervention planned will move forward with second metatarsal head resection Plan for surgical intervention Thursday/Thursday once cleared by vascular Continue irrigation and daily dressing changes by nursing Yamileth Brown DPM Jan 01, 2018 19:44
[2018-01-01 19:58] VITALS: BP 184/89; PULSE 73; RESP 18; TEMP 98.4; O2SAT 96
--- NOTE | 2018-01-01 20:59 | PD.CAR.PN ---
CVT Progress Note Subjective/Hospital Course: Patient seen full consult dictated Thanks J Objective: Vital Signs Date Time Temp Pulse Resp B/P (MAP) Pulse Ox O2 Delivery O2 Flow Rate FiO2 01/01/18 19:58 98.4 73 18 184/89 (120) 96 01/01/18 17:56 98.6 72 18 178/80 (112) 94 01/01/18 13:05 98.7 68 18 179/84 (115) 93 01/01/18 08:31 97.6 68 18 177/91 (119) 94 01/01/18 03:17 98.6 69 17 151/89 (109) 94 12/31/17 23:28 98.1 77 17 140/78 (98) 95 Result Diagram: 12/31/17 0526 12/31/17 0526 Melina Apodaca MD Jan 01, 2018 20:59
--- NOTE | 2018-01-01 21:46 | MB ---
cc: Melina Apodaca MD DATE: 01/01/2018 CONSULTING PHYSICIAN: Melina Apodaca MD, vascular surgery. REASON FOR CONSULTATION: Peripheral vascular disease, ischemia of the left leg and gangrene of the left foot, diabetes mellitus, coronary artery disease. CRITICAL CARE TIME: 38 minutes. HISTORY OF PRESENT ILLNESS: This 62-year-old male with complex previous medical history presented to the hospital with an abscess of his left foot, underwent I and D of the same and now it is dressed up, question arises about possible vascular implications. The patient states that he has had diabetes for about 10 years. He stepped on a nail about 3 years ago of some sorts, but now this got worse. It is obvious that the 2 are not related, nonetheless, there is the story. I was asked kindly by human resource assistant to see the patient. PAST MEDICAL HISTORY: That of diabetes mellitus, coronary artery disease, left leg DVT, hypertension, chronic back pain. PAST SURGICAL HISTORY: Coronary artery stent placement 1995, right knee repair 1979, morphine pump in 1995, still there has not been used, and L1 through L5 laminectomy and fusion in 1988. MEDICATIONS: Can be found on the record. In addition to all of those the patient is on methadone, which he gets somewhere from [place]. I do not know how that goes. ALLERGIES: NO KNOWN ALLERGIES. SOCIAL HISTORY: The patient smokes 1-1/2 pack a day for 50 years and did not stop, drinks socially states. PHYSICAL EXAMINATION: GENERAL: Reveals a 62-year-old male in no acute distress. HEENT: Normocephalic. No trauma to head. Pupils are equal, reactive. Extraocular muscles intact. NECK: Bilateral carotid pulses and right-sided 3/6 bruit. No masses in the neck. CHEST: Bilateral breath sounds decreased over both lung kulkarni consistent with mild to moderate COPD. HEART: Regular rhythm. No murmur. ABDOMEN: Soft, somewhat obese. Active bowel sounds. No rebound, no guarding, no masses. EXTREMITIES: The patient has palpable femoral pulses, dopplerable bilateral popliteal pulses, dopplerable posterior tibial pulses and dorsalis pedis on the right. No pulses on the left can be palpated. The patient has a dressing from previous surgery. Feet appear to be warm and capillary refill is maybe slightly decreased, but not bad. NEUROLOGIC: The patient is grossly intact. IMPRESSION: Patient with multiple medical problems and clearly vascular disease manifested by coronary problems and now the leg. The patient will be scheduled for CTA with runoff and a carotid ultrasound. We will go from there and see if we can improve this patient's chances of this healing. Thank you very much for referral. MD REMBERTO Lambert/rt , 08:53 PM , 09:45 PM
--- NOTE | 2018-01-01 22:49 | RADRPT ---
EXAM DATE/TIME: 01/01/2018 21:11 [facility] COMPARISON: No previous studies available for comparison. INDICATIONS : Bruit. MEDICAL HISTORY : Myocardial infarction. Hypertension. Hearing loss. Numbness. Coronary artery disease. Anticoagulant therapy. Arthritis. Diabetes. SURGICAL HISTORY : Coronary artery stent. Total knee replacement, right. Cardiac catheterization. ENCOUNTER: Initial ACUITY: 1 day PAIN SCORE: 0/10 LOCATION: Bilateral neck PEAK SYSTOLIC VELOCITIES (cm/sec): ICA/CCA RATIO: Right: 1.3 Left: 1.4 ICA: Right: 72.3 Left: 78.3 CCA: Right: 53.7 Left: 54.1 ECA: Right: 109.9 Left: 70.2 VERTEBRAL: Right: 54.8 antegrade Left: 58.1 antegrade Elevated flow velocities and ICA/CCA ratios have been found to correlate with increased degrees of vessel stenosis, calculated as percentage of diameter relative to a normal segment of distal ICA/CCA FINDINGS: RIGHT CAROTID: No significant stenosis is visualized. The waveforms are within normal limits. LEFT CAROTID: No significant stenosis is visualized. The waveforms are within normal limits. VERTEBRAL ARTERIES: Antegrade flow is seen in both vertebral arteries. MISCELLANEOUS: None. CONCLUSION: 1. Mild visible plaque without hemodynamically significant stenosis in the carotid arteries. Ehsan Simental MD on January 01, 2018 at 22:46 Board Certified Radiologist. This report was verified electronically.
[2018-01-01 23:30] VITALS: BP 175/81; PULSE 74; RESP 18; TEMP 98.4; O2SAT 95
[2018-01-02] MEDS: PIPERACIL-TAZO 3.375 GM PREMIX 50 ML IV SCH ×5 (01:15→22:14)
[2018-01-02 03:24] VITALS: BP 178/82; PULSE 74; RESP 18; TEMP 98.1; O2SAT 95
[2018-01-02] MEDS ORDERED: PHARMACY ORDERED LAB ONE (07:45)
[2018-01-02] MEDS: INSULIN ASPART SUPPLEMENTAL SCALE SQ SCH ×4 (08:00→21:00)
--- NOTE | 2018-01-02 08:13 | HHI.PR ---
Subjective Remarks Follow up left foot abscess, osteomyelitis. Patient denies pain currently. No chest pain, dyspnea, nausea, vomiting. Objective Vitals Vital Signs Date Time Temp Pulse Resp B/P (MAP) Pulse Ox O2 Delivery O2 Flow Rate FiO2 01/02/18 03:24 98.1 74 18 178/82 (114) 95 01/01/18 23:30 98.4 74 18 175/81 (112) 95 01/01/18 19:58 98.4 73 18 184/89 (120) 96 01/01/18 17:56 98.6 72 18 178/80 (112) 94 01/01/18 13:05 98.7 68 18 179/84 (115) 93 01/01/18 08:31 97.6 68 18 177/91 (119) 94 I/O 01/01/18 01/01/18 01/01/18 01/02/18 01/02/18 01/02/18 07:00 15:00 23:00 07:00 15:00 23:00 Output Total 800 ml Balance -800 ml Output Urine Total 800 ml Result Diagram: 12/31/17 0526 12/31/17 0526 Imaging Last Impressions Carotid Artery Ultrasound 01/01/18 0000 Signed Impressions: Service Date/Time: Monday, January 01, 2018 21:11 - CONCLUSION: 1. Mild visible plaque without hemodynamically significant stenosis in the carotid arteries. Ehsan Simental MD Chest X-Ray 12/29/17 1135 Signed Impressions: Service Date/Time: Friday, December 29, 2017 12:04 - CONCLUSION: No acute disease. Narayan Parry MD Lower Extremity Ultrasound 12/29/17 0000 Signed Impressions: Service Date/Time: Friday, December 29, 2017 23:08 - CONCLUSION: Negative for deep venous thrombosis. Adam Barr MD Foot X-Ray 12/29/17 0000 Signed Impressions: Service Date/Time: Friday, December 29, 2017 12:09 - CONCLUSION: 1. Soft tissue swelling greatest involving the second toe. 2. No fracture. 3. Plantar calcaneal spur. Narayan Parry MD Objective Remarks General: No acute distress. Heart: Regular rate and rhythm. No murmur. Lungs: Clear to auscultation bilaterally. No wheezes, rales, or rhonchi. Breathing is nonlabored. Abdomen: Soft, nontender, nondistended. Extremities: No right lower extremity edema. Left foot bandaged. Psych: Alert and oriented. Procedures 12/30/17 incision and drainage with bone biopsy at bedside Urinary Catheter: No Vascular Central Line Catheter: No A/P Problem List: (1) Cellulitis of foot ICD Code: L03.119 - Cellulitis of unspecified part of limb Status: Acute (2) Abscess of left foot ICD Code: L02.612 - Cutaneous abscess of left foot (3) Osteomyelitis of foot, left, acute ICD Code: M86.172 - Other acute osteomyelitis, left ankle and foot Assessment and Plan 1. Left foot second toe cellulitis/abscess/osteomyelitis: X-ray showed soft tissue swelling. Continue IV antibiotics. Appreciate podiatry recommendations. Status post bedside incision and drainage with bone biopsy. Cultures are growing Bacteroides; sensitivities pending. Bone biopsy consistent with osteomyelitis. Appreciate vascular surgery recommendations. CTA with runoff ordered. Podiatry planning on further surgery Thursday or Thursday if cleared by Vascular surgery. 2. Left lower extremity swelling: Likely secondary to infection. Ultrasound is negative for DVT. 3. Hypertension: Continue lisinopril. Clonidine as needed. 4. Acute kidney injury: Improving. Continue IV fluids. Monitor labs. 5. Tobacco abuse: Counseled to quit smoking. 6. Chronic back pain: Patient reportedly takes methadone at home. This has not yet been verified with the patient's pharmacy. 7. Diabetes mellitus type 2: Monitor Accu-Cheks and cover with sliding scale insulin. Diabetic diet. 8. DVT prophylaxis: COLE Arreaga. Avoid chemical prophylaxis in anticipation of possible need for further surgical intervention. Discharge Planning When cleared by podiatry. Perico Oquendo MD Jan 02, 2018 08:13
[2018-01-02 08:36] VITALS: BP 185/92; PULSE 73; RESP 18; TEMP 98.9; O2SAT 95
[2018-01-02] MEDS: LISINOPRIL 20 MG TAB PO SCH (08:54)
[2018-01-02] MEDS: ASPIRIN 325 MG TAB PO SCH (08:54)
[2018-01-02] MEDS: VANCOMYCIN INJ 1,250 MG in SODIUM CHLOR 0.9% 250 ML INJ 250 ML IV SCH ×2 (10:37→22:28)
[2018-01-02] MEDS ORDERED: IOHEXOL 350 MG/ML 10 ML VIAL (for RAD DIAG) IVCONTRAST ONE (10:38)
[2018-01-02] MEDS: SODIUM CHLORIDE 0.9% FLUSH 10 ML FLUSH IV FLUSH SCH ×2 (10:38→22:28)
[2018-01-02 11:47] VITALS: BP 173/82; PULSE 59; RESP 18; TEMP 98.4; O2SAT 93
--- NOTE | 2018-01-02 12:14 | RADRPT ---
EXAM DATE/TIME: 01/02/2018 10:14 [facility] COMPARISON: No previous studies available for comparison. INDICATIONS : Left foot wound. IV CONTRAST: 100 cc Omnipaque 350 (iohexol) IV RADIATION DOSE: 4.94 CTDIvol (mGy) MEDICAL HISTORY : Hypertension. Myocardial infarction. SURGICAL HISTORY : Fusion, lumbar. ENCOUNTER: Initial ACUITY: 1 day PAIN SCALE: 0/10 LOCATION: Left foot TECHNIQUE: Volumetric scanning was performed using a multi-row detector CT scanner. The data was post processed with a variety of visualization algorithms including full volume maximum intensity projection, multi -planar sliding thin slab reformation, curved planar reformation, and surface rendering techniques. Using automated exposure control and adjustment of the mA and/or kV according to patient size, radiat ion dose was kept as low as reasonably achievable to obtain optimal diagnostic quality images. DICO M format image data is available electronically for review and comparison. FINDINGS: ABDOMINAL AORTA: The lumen is smooth without significant narrowing or aneurysmal dilation. The proximal celiac and ferreira perior mesenteric arteries are patent and normal in diameter. There are solitary renal arteries bila terally without gross abnormality. BIFURCATION: Normal. RIGHT PELVIS: The right common iliac, internal iliac, and external iliac vessels are patent without luminal irregul arity. LEFT PELVIS: The left common iliac, internal iliac, and external iliac vessels are patent and without luminal irre gularity. RIGHT THIGH: The superficial femoral and profunda vessels are patent without luminal irregularity. LEFT THIGH: The superficial femoral and profunda vessels are patent without luminal irregularity. RIGHT KNEE: The distal femoral and popliteal arteries are patent without luminal irregularity. LEFT KNEE: The distal femoral and popliteal arteries are patent without luminal irregularity. RIGHT LEG: The trifurcation is intact. LEFT LEG: The trifurcation is intact. ADDITIONAL FINDINGS: Gallbladder sludge is noted. Left inguinal lymphadenopathy is noted and is nonspecific. CONCLUSION: 1. No significant aortoiliac or femoral-popliteal stenosis or occlusions. 2. 3 vessel runoff bilaterally. 3. Left inguinal lymphadenopathy which is nonspecific. 4. Gallbladder sludge. Kee Yang MD on January 02, 2018 at 12:04 Board Certified Radiologist. This report was verified electronically.
--- NOTE | 2018-01-02 12:19 | RADRPT ---
EXAM DATE/TIME: 01/01/2018 00:00 [facility] COMPARISON: No previous studies available for comparison. INDICATIONS : Diabetic foot infection, sepsis TECHNIQUE: Five-station segmental examination of the lower extremities was performed. Pulsed-cuff waveform tracings and pressures were recorded. Ankle-brachial indices and toe-brachial indices were calculated. PRESSURES (mmHg): Brachial (arm): Right iv site Left 132 Lower Thigh: Right 153 Left 170 Calf: Right 161 Left 186 Ankle: Right 162 Left 203 Toe: Right 93 Left 113 FLOWER: Right 1.23 Left 1.54 TBI: Right 0.70 Left 0.86 PULSED CUFF WAVEFORMS: Demonstrate normal amplitude bilaterally. CONCLUSION: Mild decreased toe brachial indices bilaterally suggesting vascular disease within the feet bilateral ly. Kee Yang MD on January 02, 2018 at 12:15 Board Certified Radiologist. This report was verified electronically.
--- NOTE | 2018-01-02 15:18 | PD.CAR.PN ---
CVT Progress Note Subjective/Hospital Course: Patient seen full consult dictated Thanks J 01/02/2018 Patient doing well at this time CT angiogram with runoff confirms clinical findings Patient has good inflow and outflow with some calcific arteriosclerotic changes but no hemodynamically compromising lesions Nothing to add from vascular point May safely proceed with podiatric surgery Objective: Vital Signs Date Time Temp Pulse Resp B/P (MAP) Pulse Ox O2 Delivery O2 Flow Rate FiO2 01/02/18 11:47 98.4 59 18 173/82 (112) 93 01/02/18 08:36 98.9 73 18 185/92 (123) 95 01/02/18 03:24 98.1 74 18 178/82 (114) 95 01/01/18 23:30 98.4 74 18 175/81 (112) 95 01/01/18 19:58 98.4 73 18 184/89 (120) 96 01/01/18 17:56 98.6 72 18 178/80 (112) 94 Labs: Laboratory Tests Test 01/02/18 09:20 Vancomycin Level Trough 17.0 MCG/ML (5.0-10.0) Result Diagram: 12/31/17 0526 12/31/17 0526 Melina Apodaca MD Jan 02, 2018 15:18
[2018-01-02 16:00] VITALS: BP 148/72; PULSE 62; RESP 18; TEMP 98.6; O2SAT 95
[2018-01-02 20:00] VITALS: BP 180/92; PULSE 72; RESP 17; TEMP 98.4; O2SAT 95
[2018-01-02] MEDS: cloNIDine HCL 0.1 MG TAB PO PRN (21:54)
[2018-01-02] MEDS: NS + KCL 20 MEQ INJ 1,000 ML IV SCH (22:14)
[2018-01-03] VITALS: BP 145/79; PULSE 65; RESP 17; TEMP 99.6; O2SAT 91
[2018-01-03] MEDS: PIPERACIL-TAZO 3.375 GM PREMIX 50 ML IV SCH ×4 (06:25→23:31)
[2018-01-03] MEDS ORDERED: BACITRACIN TOP OINT 15 GM TUBE ONE (07:18)
[2018-01-03] MEDS ORDERED: LIDOCAINE HCL 1% 50 ML VIAL ONE (07:18)
[2018-01-03] MEDS ORDERED: BUPIVACAINE HCL PF 0.5% 30 ML VIAL ONE (07:18)
[2018-01-03 07:20] VITALS: BP 178/80; PULSE 66; RESP 18; TEMP 98.4; O2SAT 93
[2018-01-03] MEDS ORDERED: NEOMYCIN/POLYMYXIN 1 ML G.U. IRRIGANT ONE (07:22)
[2018-01-03] MEDS: ASPIRIN 325 MG TAB PO SCH (07:28)
[2018-01-03] MEDS: LISINOPRIL 20 MG TAB PO SCH (07:28)
[2018-01-03] MEDS: SODIUM CHLORIDE 0.9% FLUSH 10 ML FLUSH IV FLUSH SCH ×2 (07:29→21:00)
[2018-01-03] MEDS: INSULIN ASPART SUPPLEMENTAL SCALE SQ SCH ×4 (07:29→21:00)
[2018-01-03 08:00] VITALS: BP 178/80; PULSE 66; RESP 18; TEMP 98.4; O2SAT 93
[2018-01-03] MEDS: VANCOMYCIN INJ 1,250 MG in SODIUM CHLOR 0.9% 250 ML INJ 250 ML IV SCH ×2 (08:00→21:24)
--- NOTE | 2018-01-03 08:06 | HHI.PR ---
Subjective Remarks Patient seen bedside in preop. Understands all risks, benefits, alternatives and complications associated with surgery. Objective Vital Signs Date Time Temp Pulse Resp B/P (MAP) Pulse Ox O2 Delivery O2 Flow Rate FiO2 01/03/18 07:20 98.4 66 18 178/80 (112) 93 01/03/18 00:00 99.6 65 17 145/79 (101) 91 01/02/18 20:00 98.4 72 17 180/92 (121) 95 01/02/18 16:00 98.6 62 18 148/72 (97) 95 01/02/18 11:47 98.4 59 18 173/82 (112) 93 01/02/18 08:36 98.9 73 18 185/92 (123) 95 I/O 01/02/18 01/02/18 01/02/18 01/03/18 01/03/18 01/03/18 07:00 15:00 23:00 07:00 15:00 23:00 Intake Total 800 ml 240 ml Output Total 1500 ml 850 ml Balance -700 ml -610 ml Intake Oral 800 ml 240 ml Output Urine Total 1500 ml 850 ml Result Diagram: 12/31/17 0526 12/31/17 0526 Imaging Last Impressions Carotid Artery Ultrasound 01/01/18 0000 Signed Impressions: Service Date/Time: Monday, January 01, 2018 21:11 - CONCLUSION: 1. Mild visible plaque without hemodynamically significant stenosis in the carotid arteries. Ehsan Simental MD Chest X-Ray 12/29/17 1135 Signed Impressions: Service Date/Time: Friday, December 29, 2017 12:04 - CONCLUSION: No acute disease. Narayan Parry MD Lower Extremity Ultrasound 12/29/17 0000 Signed Impressions: Service Date/Time: Friday, December 29, 2017 23:08 - CONCLUSION: Negative for deep venous thrombosis. Adam Barr MD Foot X-Ray 12/29/17 0000 Signed Impressions: Service Date/Time: Friday, December 29, 2017 12:09 - CONCLUSION: 1. Soft tissue swelling greatest involving the second toe. 2. No fracture. 3. Plantar calcaneal spur. Narayan Parry MD Procedures s/p bedside I&D with bone biopsy to left foot Other Results Microbiology Date/Time Source Procedure Growth Status 12/29/17 12:35 Blood Peripheral Aerobic Blood Culture - Preliminary NO GROWTH IN 4 DAYS Resulted 12/29/17 12:35 Blood Peripheral Anaerobic Blood Culture - Preliminary NO GROWTH IN 4 DAYS Resulted 12/29/17 12:30 Urine Catheterized Urine Urine Culture - Final NO GROWTH IN 48 HOURS. Complete 12/30/17 18:08 Wound Bone Gram Stain - Final Complete 12/30/17 18:08 Wound Culture - Final Bacteroides Species Complete Objective Remarks Left foot dressing clean dry and intact. 01/01/18: Lower extremity physical exam: Vascular: Dorsalis pedis 1 out of 4, posterior tibial nonpalpable. Capillary refill time within normal limits to digits 5 bilateral foot. Edema present left foot and ankle. Neuro: Gross sensation intact to bilateral lower extremity. Pinpoint sensation decreased to bilateral lower extremity. No hyperalgesia noted to bilateral lower extremity. Dermatology: Normal temperature and turgor to bilateral lower extremity. Plantar wound noted with no active drainage of purulence on compression, associated erythema and cellulitis extending into second metatarsal phalangeal joint which has not resolved. No open lesions noted to left foot. Increased erythema and edema noted to left foot and ankle. Musculoskeletal: Tender to palpation to left foot. Medications and IVs Current Medications Medications (Trade) Dose Ordered Sig/Angy Route Start Time Stop Time Status Last Admin Pharmacy Profile Note 0 ml @ 0 mls/hr UNSCH OTHER 12/29/17 17:45 Piperacillin Sod/ Tazobactam Sod 50 ml @ 100 mls/hr Q6H IV 12/30/17 00:00 01/03/18 06:25 (NovoLOG SUPPLEMENTAL SCALE) 1 ACHS SLIDING SCALE SQ 12/29/17 21:00 01/01/18 13:12 (NS Flush) 2 ml UNSCH PRN IV FLUSH 12/29/17 17:45 (NS Flush) 2 ml BID IV FLUSH 12/29/17 21:00 01/03/18 07:29 (Zofran Inj) 4 mg Q6H PRN IVP 12/29/17 17:45 (Narcan Inj) 0.4 mg UNSCH PRN IV PUSH 12/29/17 17:45 (Milk Of Magnesia Liq) 30 ml Q12H PRN PO 12/29/17 17:45 (Senokot) 17.2 mg Q12H PRN PO 12/29/17 17:45 (Dulcolax Supp) 10 mg DAILY PRN RECTAL 12/29/17 17:45 (Lactulose Liq) 30 ml DAILY PRN PO 12/29/17 17:45 Vancomycin HCl 1250 mg/Sodium Chloride 262.5 ml @ 250 mls/hr Q12H IV 12/30/17 08:00 01/02/18 22:28 (Catapres) 0.1 mg Q6H PRN PO 12/29/17 22:15 01/02/18 21:54 (Prinivil) 20 mg DAILY PO 12/30/17 09:00 01/03/18 07:28 (Aspirin) 325 mg DAILY PO 12/30/17 09:00 01/02/18 08:54 (Morphine Inj) 3 mg Q3H PRN IV PUSH 12/29/17 23:30 Potassium Chloride/Sodium Chloride 1,000 ml @ 42 mls/hr [id number] IV 12/30/17 09:00 01/02/18 22:14 Miscellaneous Information SPECIFIC LAB TO BE ... ONCE ONCE .XX 01/04/18 07:45 01/04/18 07:46 Assessment and Plan Assessment and Plan 62-year-old male with left plantar second metatarsal abscess Patient examined and evaluated with all questions answered Patient has remained NPO Consent signed TO OR today for Left second metatarsal amputation with possible second digit amputation Discussed with vascular surgery ok to proceed with intervention - no intervention planned by vascular surgery Bone biopsy pathology + for Yamileth Ceja DPM Jan 03, 2018 08:06
[2018-01-03] MEDS: NS + KCL 20 MEQ INJ 1,000 ML IV SCH (08:16)
[2018-01-03] MEDS ORDERED: DO NOT ADM ANY ANTICOAGULANT DRUGS PRN (09:20)
--- NOTE | 2018-01-03 09:22 | HHI.PR ---
Immediate Post Op Note Procedure Date: Jan 03, 2018 Pre Op Diagnosis: Left second metatarsal osteomyelitis Post Op Diagnosis: Left second metatarsal osteomyelitis Surgeon: Yamileth Brown Reconciliation Coordinator(s): None Procedure: Left second metatarsal head resection with wound vac placement Findings: None Complications: None Specimen(s) removed: Left second metatarsal head for micro and pathology Left proximal phalanx for micro and pathology Left foot soft tissue for micro Estimated blood loss: 15cc Anesthesia: MAC Drains: None (wound vac placement to left foot) IVF Patient to: PACU Patient Condition: Good Yamileth Brown DPM Jan 03, 2018 09:22
[2018-01-03] MEDS ORDERED: Post-op Orders (for Pharmacy) XX ONE (09:30)
[2018-01-03] MEDS ORDERED: MIDAZOLAM HCL 2 MG/2 ML VIAL ONE (09:31)
--- NOTE | 2018-01-03 09:32 | HHI.FF ---
Face to Face Verification Diagnosis: (1) Osteomyelitis of foot, left, acute Home Health Nursing Order: Wound care and dressing changes Instructions: Adaptic with dry sterile dressing to dorsum of foot Wound vac with black sponge to plantar sub second metatarsal wound I have seen patient Leobardo Kendrick Jr Faiza on 01/03/18. My clinical findings support the need for the requested home health care services because: Deconditioned w/ increased weakness High risk of falls (secondary to non weight bearing status ) Infection w/ risk of complications I certify that my clinical findings support that this patient is homebound because: Post-op weakness Unsteady gait/balance Yamileth Brown DPM Jan 03, 2018 09:32
--- NOTE | 2018-01-03 10:08 | RADRPT ---
EXAM DATE/TIME: 01/03/2018 09:48 [facility] COMPARISON: FOOT LEFT COMPLETE ([id number]), December 29, 2017, 12:09. INDICATIONS : Post surgery Left 2nd metatarsal resection MEDICAL HISTORY : Hypertension. Myocardial infarction. SURGICAL HISTORY : Fusion, lumbar. ENCOUNTER: Subsequent ACUITY: >1 year PAIN SCORE: 0/10 LOCATION: Left Foot FINDINGS: The patient is status post left second distal metatarsal resection. Soft tissue swelling involving th e left second toe is still noted. Small plantar calcaneal spur is noted. Mild degenerative changes in volving the first metatarsophalangeal and interphalangeal joints. CONCLUSION: Status post left second distal metatarsal resection. Persistent soft tissue swelling of the left seco nd toe. A small plantar calcaneal spur. Mild degenerative changes involving the first metatarsophalan geal and interphalangeal joints. Kee Yang MD on January 03, 2018 at 10:03 Board Certified Radiologist. This report was verified electronically.
--- NOTE | 2018-01-03 10:28 | MP ---
cc: Yamileth Brown DPM DATE OF OPERATION: SURGEON: Yamileth Brown DPM 21 DEALER: None. PREOPERATIVE DIAGNOSIS: Left second metatarsal osteomyelitis. POSTOPERATIVE DIAGNOSIS: Left second metatarsal osteomyelitis. PROCEDURE PERFORMED: Left second metatarsal head resection with wound VAC placement to plantar foot wound. ANESTHESIA: Sedation with a local infiltrate of 20 mL of 0.5% Marcaine plain. HEMOSTASIS: Ankle tourniquet set at 250 mmHg for 26 minutes. ESTIMATED BLOOD LOSS: 15 mL MATERIALS: 2-0 and 3-0 Prolene. INJECTABLES: None. COMPLICATIONS: None. INDICATIONS FOR PROCEDURE: The patient is a 62-year-old male who presented status post stepping on a nail. He states he was sent over by his technical service specialist, who recommended he be admitted. The patient was experiencing extreme pain, erythema, and there was an abscess collection submetatarsal 2. Incision and drainage was performed bedside with bone biopsy and bone of second metatarsal head came back positive for osteomyelitis. Therefore, decision was made to resect the second metatarsal head. The patient understands all alternatives, complications, risks and benefits associated with the procedure. He would like to proceed with surgical intervention. DETAILS OF PROCEDURE: The patient was brought back to the operating room and placed on the operating room table in a supine position. Sedation was then achieved. Pneumatic ankle tourniquet was placed to left ankle. Left foot was prepped and draped in the usual sterile fashion. Esmarch was used to exsanguinate the left foot and ankle tourniquet was inflated. Prior to inflation of ankle tourniquet 20 mL of 0.5% Marcaine plain were infiltrated about the left foot. At this time a 3 cm incision was made with a 15 blade with care to retract all vital neurovascular structures when dissecting through subcutaneous tissue. Incision was made through capsule to bone. A garrison elevator was utilized to remove all periosteal tissue from second metatarsal head. Sagittal saw was then utilized to resect second metatarsal head. McGlamry elevators was used to free up medial and lateral ligaments and second metatarsal head was removed from the foot and passed off the field. Copious irrigation was then performed at this time. Following copious irrigation, a proximal clean margin of second metatarsal was taken and sent for path and microbiology. Following lavage the proximal phalanx, second digit was also sent for micro and pathology. Site was then once again copiously irrigated, closed with 2-0 and 3-0 Prolene. Attention was then directed to plantar aspect submetatarsal 2 where a 3 x 4 cm wound was noted with 2 cm depth. All necrotic nonviable tissue was excised. Full thickness excisional debridement was performed. Following full-thickness excisional debridement, a wound VAC was placed. It was noted to be functioning appropriately at 125 mmHg. The patient tolerated procedure and anesthesia well. Cast padding and Félix was placed to the left foot. He was transferred from the OR to PACU with vital signs stable and neurovascular status intact to digits of the left foot. The patient understands he is at risk for losing second digit. We will await pathology. He is to continue on IV antibiotics. JESSICA Koenig , 09:40 AM , 10:27 AM
--- NOTE | 2018-01-03 10:38 | HHI.PR ---
Subjective Remarks Follow up osteomyelitis. Patient just returned from surgery. States that his pain is well-controlled. No complaints at this time. Objective Vitals Vital Signs Date Time Temp Pulse Resp B/P (MAP) Pulse Ox O2 Delivery O2 Flow Rate FiO2 01/03/18 09:45 97.6 58 16 150/72 (98) 95 01/03/18 09:30 62 16 141/79 (99) 95 Nasal Cannula 2 01/03/18 09:20 97.8 65 16 148/72 (97) 97 Nasal Cannula 2 01/03/18 08:00 98.4 66 18 178/80 (112) 93 01/03/18 07:20 98.4 66 18 178/80 (112) 93 01/03/18 00:00 99.6 65 17 145/79 (101) 91 01/02/18 20:00 98.4 72 17 180/92 (121) 95 01/02/18 16:00 98.6 62 18 148/72 (97) 95 01/02/18 11:47 98.4 59 18 173/82 (112) 93 I/O 01/02/18 01/02/18 01/02/18 01/03/18 01/03/18 01/03/18 07:00 15:00 23:00 07:00 15:00 23:00 Intake Total 800 ml 240 ml 600 ml Output Total 1500 ml 850 ml 15 ml Balance -700 ml -610 ml 585 ml Intake Oral 800 ml 240 ml IV Total 600 ml Output Urine Total 1500 ml 850 ml Estimated Blood Loss 15 ml Result Diagram: 12/31/17 0526 12/31/17 0526 Imaging Last Impressions Carotid Artery Ultrasound 01/01/18 0000 Signed Impressions: Service Date/Time: Monday, January 01, 2018 21:11 - CONCLUSION: 1. Mild visible plaque without hemodynamically significant stenosis in the carotid arteries. Ehsan Simental MD Chest X-Ray 12/29/17 1135 Signed Impressions: Service Date/Time: Friday, December 29, 2017 12:04 - CONCLUSION: No acute disease. Narayan Parry MD Lower Extremity Ultrasound 12/29/17 0000 Signed Impressions: Service Date/Time: Friday, December 29, 2017 23:08 - CONCLUSION: Negative for deep venous thrombosis. Adam Barr MD Foot X-Ray 12/29/17 0000 Signed Impressions: Service Date/Time: Friday, December 29, 2017 12:09 - CONCLUSION: 1. Soft tissue swelling greatest involving the second toe. 2. No fracture. 3. Plantar calcaneal spur. Narayan Parry MD Objective Remarks General: No acute distress. Heart: Regular rate and rhythm. No murmur. Lungs: Clear to auscultation bilaterally. No wheezes, rales, or rhonchi. Breathing is nonlabored. Abdomen: Soft, nontender, nondistended. Extremities: No right lower extremity edema. Left foot bandaged. Wound VAC in place. Psych: Alert and oriented. Procedures 12/30/17 incision and drainage with bone biopsy at bedside 01/03/18 left second metatarsal head resection with wound VAC placement Urinary Catheter: No Vascular Central Line Catheter: No A/P Problem List: (1) Cellulitis of foot ICD Code: L03.119 - Cellulitis of unspecified part of limb Status: Acute (2) Abscess of left foot ICD Code: L02.612 - Cutaneous abscess of left foot (3) Osteomyelitis of foot, left, acute ICD Code: M86.172 - Other acute osteomyelitis, left ankle and foot Assessment and Plan 1. Left foot second toe cellulitis/abscess/osteomyelitis: X-ray showed soft tissue swelling. Continue IV antibiotics. Appreciate podiatry recommendations. Status post bedside incision and drainage with bone biopsy. Cultures are growing Bacteroides; sensitivities pending. Bone biopsy consistent with osteomyelitis. Appreciate vascular surgery recommendations. CTA with runoff ordered. Podiatry planning on further surgery Thursday or Thursday if cleared by Vascular surgery. 2. Left lower extremity swelling: Likely secondary to infection. Ultrasound is negative for DVT. 3. Hypertension: Continue lisinopril. Clonidine as needed. 4. Acute kidney injury: Improving. Continue IV fluids. Monitor labs. 5. Tobacco abuse: Counseled to quit smoking. 6. Chronic back pain: Patient reportedly takes methadone at home. This has not yet been verified with the patient's pharmacy. 7. Diabetes mellitus type 2: Monitor Accu-Cheks and cover with sliding scale insulin. Diabetic diet. 8. DVT prophylaxis: SCDs, COLE hose. Avoid chemical prophylaxis in anticipation of possible need for further surgical intervention. Discharge Planning When cleared by podiatry. Perico Oquendo MD Jan 03, 2018 10:37
[2018-01-03 12:00] VITALS: BP 161/78; PULSE 63; RESP 18; TEMP 97.6; O2SAT 97
[2018-01-03] MEDS ORDERED: LIDOCAINE HCL 1% PF 5 ML SYRINGE OTHER ONE (12:00)
[2018-01-03] MEDS ORDERED: PROPOFOL 200 MG/20 ML AMP IV ONE (12:00)
[2018-01-03 14:00] LABS: AUTOMATED NEUTROPHIL # 4.5 TH/MM3 (1.8-7.7); BASOPHIL # 0.1 TH/MM3 (0-0.2); BASOPHIL % 0.7 % (0.0-2.0); EOSINOPHIL # 0.4 TH/MM3 (0-0.4); EOSINOPHIL % 4.8 % (0.0-4.0); HEMATOCRIT 36.9 % (39.0-51.0); HEMOGLOBIN 12.3 GM/DL (13.0-17.0); LYMPH % 27.7 % (9.0-44.0); LYMPHOCYTE # 2.2 TH/MM3 (1.0-4.8); MEAN CELL VOLUME 83.8 FL (80.0-100.0); MEAN CORPUSCULAR HGB CONC 33.4 % (32.0-36.0); MEAN PLATELET VOLUME 7.3 FL (7.0-11.0); MONO % 10.4 % (0.0-8.0); MONOCYTE # 0.8 TH/MM3 (0-0.9); NEUT % 56.4 % (16.0-70.0); PLATELET COUNT 245 TH/MM3 (150-450); RED BLOOD COUNT 4.41 MIL/MM3 (4.50-5.90); RED CELL DISTRIBUTION WIDTH 14.6 % (11.6-17.2)
[2018-01-03 14:16] LABS: BICARBONATE 28.8 MEQ/L (21.0-32.0); CALCIUM 9.3 MG/DL (8.5-10.1); CREATININE 1.01 MG/DL (0.60-1.30)
[2018-01-03 16:00] VITALS: BP 163/81; PULSE 69; RESP 18; TEMP 98.1; O2SAT 94
[2018-01-03] MEDS: cloNIDine HCL 0.1 MG TAB PO PRN (17:28)
--- NOTE | 2018-01-03 19:55 | EKG ---
Date Performed: 01/02/2018 Time Performed: 17:04:25 PTAGE: 62 years EKG: Sinus rhythm ANTERIOR MYOCARDIAL INFARCTION ACUTE OR NO PREVIOUS TRACING DOCTOR: Rachael Moore Interpretating Date/Time 01/03/2018 19:51:42
--- NOTE | 2018-01-03 19:55 | EKG ---
Date Performed: 01/02/2018 Time Performed: 19:32:25 PTAGE: 62 years EKG: Sinus rhythm Since the previous tracing, no significant change noted NORMAL ECG PREVIOUS TRACING : 01/02/18 @ 1704 DOCTOR: Rachael Moore Interpretating Date/Time 01/03/2018 19:52:03
[2018-01-03 20:00] VITALS: BP 134/83; PULSE 70; RESP 18; TEMP 98.1; O2SAT 99
[2018-01-04] VITALS: BP 124/61; PULSE 76; RESP 18; TEMP 97.8; O2SAT 94
[2018-01-04 05:42] LABS: BICARBONATE 29.8 MEQ/L (21.0-32.0); CALCIUM 8.7 MG/DL (8.5-10.1); CREATININE 1.17 MG/DL (0.60-1.30)
[2018-01-04 06:07] LABS: AUTOMATED NEUTROPHIL # 4.1 TH/MM3 (1.8-7.7); BASOPHIL # 0.1 TH/MM3 (0-0.2); EOSINOPHIL # 0.5 TH/MM3 (0-0.4); EOSINOPHIL % 6.1 % (0.0-4.0); HEMATOCRIT 35.3 % (39.0-51.0); HEMOGLOBIN 11.6 GM/DL (13.0-17.0); LYMPH % 29.4 % (9.0-44.0); LYMPHOCYTE # 2.2 TH/MM3 (1.0-4.8); MEAN CELL VOLUME 84.6 FL (80.0-100.0); MEAN CORPUSCULAR HEMOGLOBIN 27.7 PG (27.0-34.0); MEAN CORPUSCULAR HGB CONC 32.8 % (32.0-36.0); MEAN PLATELET VOLUME 7.2 FL (7.0-11.0); MONO % 9.5 % (0.0-8.0); MONOCYTE # 0.7 TH/MM3 (0-0.9); PLATELET COUNT 234 TH/MM3 (150-450); RED BLOOD COUNT 4.17 MIL/MM3 (4.50-5.90); RED CELL DISTRIBUTION WIDTH 14.8 % (11.6-17.2); WHITE BLOOD COUNT 7.6 TH/MM3 (4.0-11.0)
[2018-01-04] MEDS: PIPERACIL-TAZO 3.375 GM PREMIX 50 ML IV SCH ×3 (06:32→17:40)
[2018-01-04] MEDS ORDERED: PHARMACY ORDERED LAB ONE (07:45)
[2018-01-04 08:00] VITALS: BP 160/93; PULSE 65; RESP 20; TEMP 97.8; O2SAT 93
[2018-01-04] MEDS: INSULIN ASPART SUPPLEMENTAL SCALE SQ SCH ×4 (08:00→21:00)
[2018-01-04] MEDS: ASPIRIN 325 MG TAB PO SCH (08:40)
[2018-01-04] MEDS: LISINOPRIL 20 MG TAB PO SCH (08:41)
[2018-01-04] MEDS: SODIUM CHLORIDE 0.9% FLUSH 10 ML FLUSH IV FLUSH SCH ×2 (08:41→21:00)
[2018-01-04] MEDS: VANCOMYCIN INJ 1,250 MG in SODIUM CHLOR 0.9% 250 ML INJ 250 ML IV SCH ×2 (08:41→21:21)
[2018-01-04] MEDS: NS + KCL 20 MEQ INJ 1,000 ML IV SCH (08:42)
[2018-01-04 12:00] VITALS: BP 119/76; PULSE 65; RESP 18; TEMP 97.7; O2SAT 93
--- NOTE | 2018-01-04 15:29 | HHI.PR ---
Subjective Remarks Nursing denies any deterioration since last night. Patient himself says he feels fine, no increased pain in his left foot. Objective Vital Signs Date Time Temp Pulse Resp B/P (MAP) Pulse Ox O2 Delivery O2 Flow Rate FiO2 01/04/18 08:00 97.8 65 20 160/93 (115) 93 01/04/18 00:00 97.8 76 18 124/61 (82) 94 01/03/18 20:00 98.1 70 18 134/83 (100) 99 01/03/18 16:00 98.1 69 18 163/81 (108) 94 I/O 01/03/18 01/03/18 01/03/18 01/04/18 01/04/18 01/04/18 07:00 15:00 23:00 07:00 15:00 23:00 Intake Total 240 ml 600 ml 820 ml 240 ml Output Total 850 ml 15 ml 1205 ml 1000 ml Balance -610 ml 585 ml -385 ml -760 ml Intake Oral 240 ml 720 ml 240 ml IV Total 600 ml 100 ml Output Urine Total 850 ml 1200 ml 1000 ml Drainage Total 5 ml Estimated Blood Loss 15 ml # Bowel Movements 0 Result Diagram: 01/04/18 0430 01/04/18 0430 Procedures s/p bedside I&D with bone biopsy to left foot Objective Remarks Sitting up in chair with left foot and reclining position, and postop dressing, unlabored breathing, no acute distress A/P Assessment and Plan Left foot second toe cellulitis/abscess/osteomyelitis: Status post bedside incision and drainage with bone biopsy by podiatry (Cultures are growing Bacteroides). Now S/p Left second metatarsal head resection with wound VAC placement to plantar foot wound. Consulting infectious disease given that bone specimen is growing bacteria. Left lower extremity swelling: Likely secondary to infection. Ultrasound is negative for DVT. Hypertension: Continue lisinopril. Clonidine as needed. Chronic back pain: Patient reportedly takes methadone at home. This has not yet been verified with the patient's pharmacy. Diabetes mellitus type 2: Monitor Accu-Cheks and cover with sliding scale insulin. Diabetic diet. DVT prophylaxis: SCDs, COLE hose. Avoid chemical prophylaxis in anticipation of possible need for further surgical intervention. Justin Chun MD Jan 04, 2018 15:29
--- NOTE | 2018-01-04 15:33 | PD.ID.CON ---
History of Present Illness Consult Requested By Hospitalist service - Dr. Chun Reason for Consult Evaluation and management of osteomyelitis left second toe Primary Care Physician Veto Lim MD Diagnoses: History of Present Illness This is a 62-year-old male with past medical history significant for type 2 DM, coronary artery disease s/p cardiac stent placement 1995, hypertension, chronic back pain status post lumbar fusion with residual lower extremity sensory loss and previous DVT in 1988 who presented to the ER at the recommendation of his accounting tutor due to left second toe cellulitis. Apparently, 3 years ago patient stepped on nail which penetrated his second toe and had cellulitis following that. He was followed by accounting tutor in [place] and treated with oral antibiotics, wound vac and serial debridements. Ultimately, his infection was effectively treated and he had no further problems for the past 8 months. This past Thursday his left second toe began to swell and turned black blue discoloration . He was seen a few days later at his podiatry office who sent him directly to the emergency room. Patient reports accompanying fevers as high as 103, chills, fatigue and generalized malaise. Patient denies any complaints of nausea, vomiting or diarrhea. He is not able to have an MRI study of the left foot secondary to previously implanted pain pump. He also provides a history of a infected clots in the left leg that was treated with a short course of antibiotics. During his inpatient admission, patient has been followed by podiatry and vascular surgery. He's been treated with IV vancomycin and Zosyn. Dr. Brown performed bedside I&D with debridement and bone biopsy with cultures showing features consistent with acute osteomyelitis. Wound and bone culture grew Bacteroides. Blood cultures have shown no growth. Patient underwent CT angiogram with runoff showing good inflow and outflow with some calcific arteriosclerotic changes but no hemodynamically compromising lesion. Nothing further to add from vascular point of view. On 01/03/18, patient underwent left second metatarsal head resection with wound VAC placement to plantar foot wound. Intraoperative cultures are still pending. (Stephie Tidwell) History of Present Illness Historical facts about multiple hardware, pain pump, prior infections reviewed again by me. Allergies reviewed: none Smokes: counseled to avoid or quitting as it affects healing. Patient was not amenable to advise. Denies any alcohol abuse or drug abuse. Counseled to avoid alcohol or drugs while on IV antibiotics. Lives at home with daughter and her children. Pet dogs in home: counseled to make sure wound and PICC line care taken good care of as these can get infected. 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 Chronic back pain on methadone Past Surgical History Cardiac stent implant 1995 Morphine pain pump 1996 - only used 4 times Right knee repair 1980s Lumbar fusion 1988, patient denies having any hardware in his lumbar spine Reported Medications Aspirin 325 Mg Tab 325 Mg PO DAILY Metformin (Metformin HCl) 500 Mg Tab 500 Mg PO BIDPC With meals Lisinopril 20 Mg Tab 20 Mg PO DAILY Methadose (Methadone HCl) 40 Mg Tab 60 Mg PO BID Active Ordered Medications Current Medications Medications (Trade) Dose Ordered Sig/Angy Route Start Time Stop Time Status Last Admin Pharmacy Profile Note 0 ml @ 0 mls/hr UNSCH OTHER 12/29/17 17:45 Piperacillin Sod/ Tazobactam Sod 50 ml @ 100 mls/hr Q6H IV 12/30/17 00:00 01/04/18 11:51 (NovoLOG SUPPLEMENTAL SCALE) 1 ACHS SLIDING SCALE SQ 12/29/17 21:00 01/04/18 11:51 (NS Flush) 2 ml UNSCH PRN IV FLUSH 12/29/17 17:45 (NS Flush) 2 ml BID IV FLUSH 12/29/17 21:00 01/03/18 07:29 (Zofran Inj) 4 mg Q6H PRN IVP 12/29/17 17:45 (Narcan Inj) 0.4 mg UNSCH PRN IV PUSH 12/29/17 17:45 (Milk Of Magnesia Liq) 30 ml Q12H PRN PO 12/29/17 17:45 (Senokot) 17.2 mg Q12H PRN PO 12/29/17 17:45 (Dulcolax Supp) 10 mg DAILY PRN RECTAL 12/29/17 17:45 (Lactulose Liq) 30 ml DAILY PRN PO 12/29/17 17:45 Vancomycin HCl 1250 mg/Sodium Chloride 262.5 ml @ 250 mls/hr Q12H IV 12/30/17 08:00 01/04/18 08:41 (Catapres) 0.1 mg Q6H PRN PO 12/29/17 22:15 01/03/18 17:28 (Prinivil) 20 mg DAILY PO 12/30/17 09:00 01/04/18 08:41 (Aspirin) 325 mg DAILY PO 12/30/17 09:00 01/04/18 08:40 (Morphine Inj) 3 mg Q3H PRN IV PUSH 12/29/17 23:30 Potassium Chloride/Sodium Chloride 1,000 ml @ 42 mls/hr [id number] IV 12/30/17 09:00 01/04/18 08:42 Miscellaneous Information SPECIFIC LAB TO BE MADELINE... ONCE ONCE .XX 01/05/18 07:45 01/05/18 07:46 Family History Father, coronary artery disease Grandfather, cancer, coronary artery disease Social History Patient has a history of tobacco use of 1/2-1 pack per day for 50 years. He denies any alcohol consumption. Patient has a history of cocaine and heroin abuse 35 years ago. Patient lives with his son and grandchildren. He does have a small dog in the home. (Stephie Tidwell) Physical Exam Vital Signs Vital Signs Date Time Temp Pulse Resp B/P (MAP) Pulse Ox O2 Delivery O2 Flow Rate FiO2 01/04/18 08:00 97.8 65 20 160/93 (115) 93 01/04/18 00:00 97.8 76 18 124/61 (82) 94 01/03/18 20:00 98.1 70 18 134/83 (100) 99 01/03/18 16:00 98.1 69 18 163/81 (108) 94 Physical Exam GENERAL: This is a well-nourished, well-developed male patient, in no apparent distress. Awake and alert. SKIN: Cool and dry. No rashes. HEAD: Atraumatic. Normocephalic. No temporal or scalp tenderness. EYES: Pupils equal round and reactive. Extraocular motions intact. No scleral icterus. No injection or drainage. ENT: Nose without bleeding, purulent drainage or septal hematoma. Throat without erythema, tonsillar hypertrophy or exudate. Uvula midline. Airway patent. NECK: Trachea midline. No lymphadenopathy. Supple, nontender, no meningeal signs. CARDIOVASCULAR: Regular rate and rhythm without murmurs, gallops, or rubs. RESPIRATORY: Fair air entry. Clear to auscultation. Breath sounds equal bilaterally. No wheezes, rales, or rhonchi. GASTROINTESTINAL: Abdomen soft, non-tender, nondistended. No hepato-splenomegaly , or palpable masses. No guarding. MUSCULOSKELETAL: Extremities without clubbing or cyanosis. Left lower extremity edema noted with multiple well healed scars. Left foot with wound vac in place, dressing C/D/I. NEUROLOGICAL: Awake and alert. Cranial nerves grossly intact. Motor grossly within normal limits. Normal speech. PSYCHIATRIC: Laboratory Laboratory Tests Test 01/04/18 04:30 01/04/18 08:50 White Blood Count 7.6 Red Blood Count 4.17 Hemoglobin 11.6 Hematocrit 35.3 Mean Corpuscular Volume 84.6 Mean Corpuscular Hemoglobin 27.7 Mean Corpuscular Hemoglobin Concent 32.8 Red Cell Distribution Width 14.8 Platelet Count 234 Mean Platelet Volume 7.2 Neutrophils (%) (Auto) 54.0 Lymphocytes (%) (Auto) 29.4 Monocytes (%) (Auto) 9.5 Eosinophils (%) (Auto) 6.1 Basophils (%) (Auto) 1.0 Neutrophils # (Auto) 4.1 Lymphocytes # (Auto) 2.2 Monocytes # (Auto) 0.7 Eosinophils # (Auto) 0.5 Basophils # (Auto) 0.1 CBC Comment DIFF FINAL Differential Comment Blood Urea Nitrogen 18 Creatinine 1.17 Random Glucose 105 Calcium Level 8.7 Sodium Level 135 Potassium Level 3.9 Chloride Level 98 Carbon Dioxide Level 29.8 Anion Gap 7 Estimat Glomerular Filtration Rate 63 Vancomycin Level Trough 16.4 Date/Time Source Procedure Growth Status 12/29/17 12:35 Blood Peripheral Aerobic Blood Culture - Final NO GROWTH IN 5 DAYS Complete 12/29/17 12:35 Blood Peripheral Anaerobic Blood Culture - Final NO GROWTH IN 5 DAYS Complete 12/29/17 12:30 Urine Catheterized Urine Urine Culture - Final NO GROWTH IN 48 HOURS. Complete 01/03/18 09:32 Wound Toe Fungal Smear - Final NO FUNGAL ELEMENTS SEEN. Resulted 01/03/18 09:32 Wound Toe Fungal Culture Pending Resulted (Stephie Tidwell) Physical Exam Foot in wound vac. [facility] IV line sites with no e.o infection (Savannah Thornton MD) Result Diagram: 01/04/18 0430 01/04/18 0430 Imaging Last Impressions Foot X-Ray 01/03/18 0000 Signed Impressions: Service Date/Time: Wednesday, January 03, 2018 09:48 - CONCLUSION: Status post left second distal metatarsal resection. Persistent soft tissue swelling of the left second toe. A small plantar calcaneal spur. Mild degenerative changes involving the first metatarsophalangeal and interphalangeal joints. Kee Yang MD Aorta w/Runoff CTA 01/02/18 0000 Signed Impressions: Service Date/Time: Tuesday, January 02, 2018 10:14 - CONCLUSION: 1. No significant aortoiliac or femoral-popliteal stenosis or occlusions. 2. 3 vessel runoff bilaterally. 3. Left inguinal lymphadenopathy which is nonspecific. 4. Gallbladder sludge. Kee Yang MD Carotid Artery Ultrasound 01/01/18 0000 Signed Impressions: Service Date/Time: Monday, January 01, 2018 21:11 - CONCLUSION: 1. Mild visible plaque without hemodynamically significant stenosis in the carotid arteries. Ehsan Simental MD Chest X-Ray 12/29/17 1135 Signed Impressions: Service Date/Time: Friday, December 29, 2017 12:04 - CONCLUSION: No acute disease. Narayan Parry MD Lower Extremity Ultrasound 12/29/17 0000 Signed Impressions: Service Date/Time: Friday, December 29, 2017 23:08 - CONCLUSION: Negative for deep venous thrombosis. Adam Barr MD (Stephie Tidwell) Imaging Last Impressions Foot X-Ray 01/03/18 0000 Signed Impressions: Service Date/Time: Wednesday, January 03, 2018 09:48 - CONCLUSION: Status post left second distal metatarsal resection. Persistent soft tissue swelling of the left second toe. A small plantar calcaneal spur. Mild degenerative changes involving the first metatarsophalangeal and interphalangeal joints. Kee Yang MD Aorta w/Runoff CTA 01/02/18 0000 Signed Impressions: Service Date/Time: Tuesday, January 02, 2018 10:14 - CONCLUSION: 1. No significant aortoiliac or femoral-popliteal stenosis or occlusions. 2. 3 vessel runoff bilaterally. 3. Left inguinal lymphadenopathy which is nonspecific. 4. Gallbladder sludge. Kee Yang MD Carotid Artery Ultrasound 01/01/18 0000 Signed Impressions: Service Date/Time: Monday, January 01, 2018 21:11 - CONCLUSION: 1. Mild visible plaque without hemodynamically significant stenosis in the carotid arteries. Ehsan Simental MD Chest X-Ray 12/29/17 1135 Signed Impressions: Service Date/Time: Friday, December 29, 2017 12:04 - CONCLUSION: No acute disease. Narayan Parry MD Lower Extremity Ultrasound 12/29/17 0000 Signed Impressions: Service Date/Time: Friday, December 29, 2017 23:08 - CONCLUSION: Negative for deep venous thrombosis. Adam Barr MD (Savannah Thornton MD) Assessment and Plan Assessment and Plan Assessment Diabetic left second metatarsal toe/foot cellulitis Left second metatarsal abscess and osteomyelitis Bacteroids infection left toe -bone biopsy consistent with osteomyelitis -Wound cultures and bone biopsy growing Bacteroides -Blood cultures negative -01/03/18 s/p left second metatarsal head resection with wound Vac placement by Dr. Brown -Currently on IV Zosyn and vancomycin -white count WNL, patient is afebrile -xray 01/03 shows persistent soft tissue swelling left second toe LLE edema -Ultrasound negative for DVT ASHLEY at admission -improved Pyuria -asymptomatic Recommendations Continue on IV Vancomycin and Zosyn Follow up on intraoperative cultures Contact micro for Bacteroides specification Monitor clinically Discussed with patient, Dr. Chun and Dr. Brown ([facility]) Assessment and Plan The exam, history, and the medical decision-making described in the above note were completed with the assistance of the mid-level provider. I reviewed the historical facts with patient again, along with pertinent ROS and performed an independent physical examination. I agree with the findings presented. I attest that I had a [id number] encounter with the patient on the same day, and personally performed and documented my assessment/plan and findings in the medical record. Cultures and path as well as imaging reviewed. Dw : bone path was positive for micro and path. She performed further micro and path on surgical specimen which is pending. Will dw Micro in am to perform susceptibility testing on Bacteroides from Bone path specimen. DC Zosyn IV DC Vanco IV Start Ceftriaxone IV Start oral flagyl Follow cultures Follow clinically. Dw patient potential need for PICC and chain maker machine IV antibiotics given dw . He was receptive of the recommendations. (Savannah Thornton MD) Stephie Tidwell Jan 04, 2018 15:33 Savannah Thornton MD Jan 04, 2018 21:47
[2018-01-04 16:00] VITALS: BP 140/80; PULSE 62; RESP 16; TEMP 98; O2SAT 94
--- NOTE | 2018-01-04 18:43 | PD.POD ---
Subjective Podiatric Problems POD #1 left second met head resection, wound debridement and VAC placement with . Pt denies any n/v/f/h/c/sob/pain. Pain score: 0 Past Med/Surg/Social History Social History Smoking Status: Current Every Day Smoker Objective Vital Signs Vital Signs Date Time Temp Pulse Resp B/P (MAP) Pulse Ox O2 Delivery O2 Flow Rate FiO2 01/04/18 16:00 98.0 62 16 140/80 (100) 94 01/04/18 12:00 97.7 65 18 119/76 (90) 93 01/04/18 08:00 97.8 65 20 160/93 (115) 93 01/04/18 00:00 97.8 76 18 124/61 (82) 94 01/03/18 20:00 98.1 70 18 134/83 (100) 99 Coded Allergies: No Known Allergies (Unverified Allergy, Unknown, 12/29/17) Physical Exam Remarks Left foot dorsal incision is well coapted with all sutures intact. Plantar wound VAC is intact. Mild erythema to left second digit. CFT < 3 secs to all digits. Calf is supple and non tender to compression. Assessment & Plan A/P 1) left foot stage 3 ulcer 2) left foot s/p left second met head resection secondary to OM -maintain wound VAC, home order placed -Will need HHC and home VAC -wound care orders placed for VAC change tomorrow -NWBing LLE, PT consulted -ok for d/c from podiatry standpoint once outpt arrangements are made and outpt abx recs are available from ID -f/u with in 1 week Deepa Bowser DPM Jan 04, 2018 18:43
[2018-01-04 20:00] VITALS: BP 177/80; PULSE 70; RESP 18; TEMP 98; O2SAT 96
[2018-01-04] MEDS: cloNIDine HCL 0.1 MG TAB PO PRN (21:18)
[2018-01-04] MEDS: metroNIDAZOLE 500 MG TAB PO SCH (23:39)
[2018-01-04] MEDS: cefTRIAXone INJ 2,000 MG in SODIUM CHLORIDE 0.9% INJ 100 ML IV SCH (23:40)
[2018-01-05] VITALS: BP 144/87; PULSE 67; RESP 20; TEMP 98.9; O2SAT 92
[2018-01-05] MEDS: metroNIDAZOLE 500 MG TAB PO SCH ×3 (04:53→20:40)
[2018-01-05] MEDS ORDERED: PHARMACY ORDERED LAB ONE (07:45)
[2018-01-05] MEDS: NS + KCL 20 MEQ INJ 1,000 ML IV SCH (07:54)
[2018-01-05 08:00] VITALS: BP 168/63; PULSE 67; RESP 19; TEMP 98.4; O2SAT 91
[2018-01-05] MEDS: INSULIN ASPART SUPPLEMENTAL SCALE SQ SCH ×4 (08:00→21:00)
[2018-01-05] MEDS: SODIUM CHLORIDE 0.9% FLUSH 10 ML FLUSH IV FLUSH SCH ×2 (09:00→20:40)
[2018-01-05] MEDS: LISINOPRIL 20 MG TAB PO SCH (09:05)
[2018-01-05] MEDS: ASPIRIN 325 MG TAB PO SCH (09:05)
--- NOTE | 2018-01-05 11:26 | PD.WCN.NOT ---
Neg Pressure Wound Therapy Wound Location Wound Location: Left foot Wound Description Length: 2.3cm Width: 1.4cm Depth: 1.0cm Wound bed appearance: 90% beefy red granular tissue 10% fascia Periwound appearance: Unremarkable Settings Suction: 125 mmHg, Continuous Intensity: Low Other Information: Bridged, Windowpaned, Mushroomed Foam type: Black Number of pieces: 1 Additonal Information Patient was [place] today [place] [address] by television script writer for wound Vac change post operation vac placement.Patient alert and oriented x3 with no current complaints of distress/pain.Dressing removed from left foot to reveal well approximated suture line to second dorsal digit.Erythema noted to incision line ~0.5 circumferentially.Plantar Full thickness surgical wound wound edges are well defined steep periwound intact.Wound cleansed with normal saline pat dry skin prep applied to periwound drape applied window paning wound drape bridged to dorsal foot.Single piece of black sponge applied to wound base and bridged to dorsal foot.Track pad applied suction started @125 mmHg low continuous suction with no leaks noted.Xeroform applied in single layer to sutures and covered with dry dressing secured with rolled gauze.Patient tolerated wound care very well no complaints of distress nor discomfort. Skyler Coelho [facility] Jan 05, 2018 11:26
[2018-01-05 12:00] VITALS: BP 166/77; PULSE 67; RESP 20; TEMP 97.7; O2SAT 94
[2018-01-05 16:00] VITALS: BP 158/74; PULSE 65; RESP 17; TEMP 97.9; O2SAT 96
--- NOTE | 2018-01-05 16:19 | HHI.PR ---
Subjective Remarks Nursing denies any deterioration since last night. Patient himself says he feels fine, no increased pain in his left foot. Objective Vital Signs Date Time Temp Pulse Resp B/P (MAP) Pulse Ox O2 Delivery O2 Flow Rate FiO2 01/05/18 12:00 97.7 67 20 166/77 (106) 94 01/05/18 08:00 98.4 67 19 168/63 (98) 91 01/05/18 00:00 98.9 67 20 144/87 (106) 92 01/04/18 20:00 98.0 70 18 177/80 (112) 96 I/O 01/04/18 01/04/18 01/04/18 01/05/18 01/05/18 01/05/18 06:59 14:59 22:59 06:59 14:59 22:59 Intake Total 240 ml 262.5 ml 1640 ml 580 ml Output Total 1000 ml 800 ml 700 ml 0 ml Balance -760 ml 262.5 ml 840 ml -120 ml 0 ml Intake Oral 240 ml 740 ml 580 ml IV Total 262.5 ml 900 ml Output Urine Total 1000 ml 800 ml 700 ml Drainage Total 0 ml 0 ml # Bowel Movements 0 Result Diagram: 01/04/18 0430 01/04/18 0430 Procedures s/p bedside I&D with bone biopsy to left foot Objective Remarks in bed with left foot in postop dressing, unchanged appearance since yesterday with wound vac in place unlabored breathing, no acute distress A/P Assessment and Plan Left foot second toe cellulitis/abscess/osteomyelitis: Status post bedside incision and drainage with bone biopsy by podiatry (Cultures are growing Bacteroides). S/p Left second metatarsal head resection with wound VAC placement to plantar foot wound. ID anticipating PICC line and IV abx upon discharge. anticipate d/c with wound vac Left lower extremity swelling: Likely secondary to infection. Ultrasound is negative for DVT. Hypertension: Continue lisinopril. Clonidine as needed. Chronic back pain: Patient reportedly takes methadone at home. Diabetes mellitus type 2: Monitor Accu-Cheks and cover with sliding scale insulin. Diabetic diet. DVT prophylaxis: SCDs, COLE hose. Avoid chemical prophylaxis in anticipation of possible need for further surgical intervention. Justin Chun MD Jan 05, 2018 16:19
[2018-01-05 20:00] VITALS: BP 169/92; PULSE 69; RESP 20; TEMP 97.9; O2SAT 98
[2018-01-05] MEDS: cefTRIAXone INJ 2,000 MG in SODIUM CHLORIDE 0.9% INJ 100 ML IV SCH (20:40)
[2018-01-06 00:23] VITALS: BP 132/67; PULSE 65; RESP 20; TEMP 99.1; O2SAT 94
[2018-01-06] MEDS: metroNIDAZOLE 500 MG TAB PO SCH ×2 (04:38→12:20)
[2018-01-06] MEDS: NS + KCL 20 MEQ INJ 1,000 ML IV SCH ×2 (04:41→04:42)
[2018-01-06 08:00] VITALS: BP 100/70; PULSE 61; RESP 17; TEMP 98.1; O2SAT 94
[2018-01-06] MEDS: INSULIN ASPART SUPPLEMENTAL SCALE SQ SCH (08:00)
[2018-01-06] MEDS: LISINOPRIL 20 MG TAB PO SCH (09:53)
[2018-01-06] MEDS: ASPIRIN 325 MG TAB PO SCH (09:54)
[2018-01-06] MEDS ORDERED: METR-1 PO (11:31)
[2018-01-06] MEDS ORDERED: CEPH-460 PO (11:31)
--- NOTE | 2018-01-06 11:34 | HHI.IDPN ---
Subjective Subjective Remarks This is a 62-year-old male with past medical history significant for type 2 DM, coronary artery disease s/p cardiac stent placement 1995, hypertension, chronic back pain status post lumbar fusion with residual lower extremity sensory loss and previous DVT in 1988 who presented to the ER at the recommendation of his boy's adviser due to left second toe cellulitis. Apparently, 3 years ago patient stepped on nail which penetrated his second toe and had cellulitis following that. He was followed by boy's adviser in [place] and treated with oral antibiotics, wound vac and serial debridements. Ultimately, his infection was effectively treated and he had no further problems for the past 8 months. This past Thursday his left second toe began to swell and turned black blue discoloration . He was seen a few days later at his podiatry office who sent him directly to the emergency room. Patient reports accompanying fevers as high as 103, chills, fatigue and generalized malaise. Patient denies any complaints of nausea, vomiting or diarrhea. He is not able to have an MRI study of the left foot secondary to previously implanted pain pump. He also provides a history of a infected clots in the left leg that was treated with a short course of antibiotics. During his inpatient admission, patient has been followed by podiatry and vascular surgery. He's been treated with IV vancomycin and Zosyn. Dr. Brown performed bedside I&D with debridement and bone biopsy with cultures showing features consistent with acute osteomyelitis. Wound and bone culture grew Bacteroides. Blood cultures have shown no growth. Patient underwent CT angiogram with runoff showing good inflow and outflow with some calcific arteriosclerotic changes but no hemodynamically compromising lesion. Nothing further to add from vascular point of view. On 01/03/18, patient underwent left second metatarsal head resection with wound VAC placement to plantar foot wound. Intraoperative cultures are still pending. Overnight events reviewed No fever No rash No diarrhea Path reviewed margins clear. dw podiatry: ok to dc on 2 weeks oral antibiotic and follow up with podiatry in clinic. Antibiotics ceftriaxone IV flagyl Lines Line sites with no e.o infection Past Medical History reviewed Allergies: Coded Allergies: No Known Allergies (Unverified Allergy, Unknown, 12/29/17) Objective . Vital Signs Date Time Temp Pulse Resp B/P (MAP) Pulse Ox O2 Delivery O2 Flow Rate FiO2 3/28/18 08:00 98.1 61 17 100/70 (80) 94 01/06/18 00:23 99.1 65 20 132/67 (88) 94 01/05/18 20:00 97.9 69 20 169/92 (117) 98 01/05/18 16:00 97.9 65 17 158/74 (102) 96 01/05/18 12:00 97.7 67 20 166/77 (106) 94 Imaging Last Impressions Foot X-Ray 01/03/18 0000 Signed Impressions: Service Date/Time: Wednesday, January 03, 2018 09:48 - CONCLUSION: Status post left second distal metatarsal resection. Persistent soft tissue swelling of the left second toe. A small plantar calcaneal spur. Mild degenerative changes involving the first metatarsophalangeal and interphalangeal joints. Kee Yang MD Aorta w/Runoff CTA 01/02/18 0000 Signed Impressions: Service Date/Time: Tuesday, January 02, 2018 10:14 - CONCLUSION: 1. No significant aortoiliac or femoral-popliteal stenosis or occlusions. 2. 3 vessel runoff bilaterally. 3. Left inguinal lymphadenopathy which is nonspecific. 4. Gallbladder sludge. Kee Yang MD Carotid Artery Ultrasound 01/01/18 0000 Signed Impressions: Service Date/Time: Monday, January 01, 2018 21:11 - CONCLUSION: 1. Mild visible plaque without hemodynamically significant stenosis in the carotid arteries. Ehsan Simental MD Chest X-Ray 12/29/17 1135 Signed Impressions: Service Date/Time: Friday, December 29, 2017 12:04 - CONCLUSION: No acute disease. Narayan Parry MD Lower Extremity Ultrasound 12/29/17 0000 Signed Impressions: Service Date/Time: Friday, December 29, 2017 23:08 - CONCLUSION: Negative for deep venous thrombosis. Adam Barr MD Physical Exam GENERAL: This is a well-nourished, well-developed male patient, in no apparent distress. Awake and alert. SKIN: Cool and dry. No rashes. HEAD: Atraumatic. Normocephalic. No temporal or scalp tenderness. EYES: Pupils equal round and reactive. Extraocular motions intact. No scleral icterus. No injection or drainage. ENT: Nose without bleeding, purulent drainage or septal hematoma. Throat without erythema, tonsillar hypertrophy or exudate. Uvula midline. Airway patent. NECK: Trachea midline. No lymphadenopathy. Supple, nontender, no meningeal signs. CARDIOVASCULAR: Regular rate and rhythm without murmurs, gallops, or rubs. RESPIRATORY: Fair air entry. Clear to auscultation. Breath sounds equal bilaterally. No wheezes, rales, or rhonchi. GASTROINTESTINAL: Abdomen soft, non-tender, nondistended. No hepato-splenomegaly , or palpable masses. No guarding. MUSCULOSKELETAL: Extremities without clubbing or cyanosis. Left lower in dressing. NEUROLOGICAL: Awake and alert. Cranial nerves grossly intact. Motor grossly within normal limits. Normal speech. Pleasant Assessment & Plan Remarks Diabetic left second metatarsal toe/foot cellulitis Left second metatarsal abscess and osteomyelitis s/p resection of infected bone. margins clear (no residual osteomyelitis) on path specimen. Bacteroids infection left toe -Wound cultures and bone biopsy growing Bacteroides -Blood cultures negative -01/03/18 s/p left second metatarsal head resection with wound Vac placement by Dr. Brown LLE edema -Ultrasound negative for DVT ASHLEY at admission Recs: DC home on oral keflex and flagyl. dw patient and . dw path findings of clear margins and no osteomyelitis. Will sign off please call back if any change in clinical condition or questions. Savannah Thornton MD Jan 06, 2018 11:34
[2018-01-06 12:00] VITALS: BP 177/83; PULSE 64; RESP 17; TEMP 97.8; O2SAT 94
[2018-01-06] MEDS: SODIUM CHLORIDE 0.9% FLUSH 10 ML FLUSH IV FLUSH SCH (12:21)
--- NOTE | 2018-01-06 12:38 | HHI.DCPOC ---
Discharge Care Plan Diagnosis: (1) Osteomyelitis of foot, left, acute (2) Abscess of left foot Goals to Promote Your Health * To prevent worsening of your condition and complications * To maintain your health at the optimal level Directions to Meet Your Goals Take your medications as prescribed Follow your dietary instruction Follow activity as directed Keep your appointments as scheduled Take your immunizations and boosters as scheduled If your symptoms worsen call your PCP, if no PCP go to Urgent Care Center or Emergency Room Smoking is Dangerous to Your Health. Avoid second hand smoke Call the 24-hour hour crisis hotline for domestic abuse at Justin Chun MD Jan 06, 2018 12:38
--- NOTE | 2018-01-06 12:39 | HHI.DS ---
Discharge Summary Admission Date Dec 29, 2017 at 17:40 Discharge Date: Jan 06, 2018 Admitting Diagnosis Diabetic foot infection/sepsis (1) Cellulitis of foot ICD Code: L03.119 - Cellulitis of unspecified part of limb Status: Acute (2) Abscess of left foot ICD Code: L02.612 - Cutaneous abscess of left foot (3) Osteomyelitis of foot, left, acute ICD Code: M86.172 - Other acute osteomyelitis, left ankle and foot Procedures 12/30/17 incision and drainage with bone biopsy at bedside 01/03/18 left second metatarsal head resection with wound VAC placement Brief History - From Admission Mr. Kendall is a 62-year-old male with a history of type 2 diabetes mellitus , coronary artery disease status post coronary stent placement 1995, hypertension, and chronic back pain who presented to the emergency room upon the recommendation of his paper slitter to have his left second toe evaluated for cellulitis. He is unable to tell me the name of his paper slitter but states that she does not do rounds here at [facility]. The patient is being admitted with podiatry consultation under the hospitalist service. The patient tells me that about 3 years ago, he stepped on a nail that penetrated his second toe and he had cellulitis following that. And eventually was effectively treated and he is had no further problems over the last couple of years. He noticed on Thursday night that the second toe on his left foot was starting to swell. By Thursday, it was now discolored red. He made an appointment on Thursday to see his paper slitter Thursday when he saw her in the office she referred him directly to the emergency room. He also reports accompanying fever as high as 103, chills, fatigue, and generalized malaise. He denies any nausea, vomiting, diarrhea, black or bloody stools. He does have a history of left lower extremity DVT in 1988 and was on Coumadin for a short period of time. Left lower extremity is more swollen than the right and has some calf tightness noted upon examination. He reports inability to to feel much of anything from a prior back surgery in which he had multiple lumbar vertebral fusions. He also states he takes methadone 20 mg 3 times daily as needed for pain. His last dose of methadone was this morning. His pharmacy is [facility] on [address] in [facility]. We will need to verify his dosage when they open tomorrow. Methadone is obtained through a physician in [facility] Dr. Thompson. CBC/BMP: 01/04/18 0430 01/04/18 0430 Significant Findings Laboratory Tests Test 01/03/18 12:51 01/04/18 04:30 01/04/18 08:50 Red Blood Count 4.41 MIL/MM3 (4.50-5.90) 4.17 MIL/MM3 (4.50-5.90) Hemoglobin 12.3 GM/DL (13.0-17.0) 11.6 GM/DL (13.0-17.0) Hematocrit 36.9 % (39.0-51.0) 35.3 % (39.0-51.0) Monocytes (%) (Auto) 10.4 % (0.0-8.0) 9.5 % (0.0-8.0) Eosinophils (%) (Auto) 4.8 % (0.0-4.0) 6.1 % (0.0-4.0) Random Glucose 107 MG/DL (74-106) Chloride Level 96 MEQ/L (98-107) Estimat Glomerular Filtration Rate 75 ML/MIN (>89) 63 ML/MIN (>89) Eosinophils # (Auto) 0.5 TH/MM3 (0-0.4) Sodium Level 135 MEQ/L (136-145) Vancomycin Level Trough 16.4 MCG/ML (5.0-10.0) Imaging Last Impressions Foot X-Ray 01/03/18 0000 Signed Impressions: Service Date/Time: Wednesday, January 03, 2018 09:48 - CONCLUSION: Status post left second distal metatarsal resection. Persistent soft tissue swelling of the left second toe. A small plantar calcaneal spur. Mild degenerative changes involving the first metatarsophalangeal and interphalangeal joints. Kee Yang MD Aorta w/Runoff CTA 01/02/18 0000 Signed Impressions: Service Date/Time: Tuesday, January 02, 2018 10:14 - CONCLUSION: 1. No significant aortoiliac or femoral-popliteal stenosis or occlusions. 2. 3 vessel runoff bilaterally. 3. Left inguinal lymphadenopathy which is nonspecific. 4. Gallbladder sludge. Kee Yang MD Carotid Artery Ultrasound 01/01/18 0000 Signed Impressions: Service Date/Time: Monday, January 01, 2018 21:11 - CONCLUSION: 1. Mild visible plaque without hemodynamically significant stenosis in the carotid arteries. Ehsan Simental MD Chest X-Ray 12/29/17 1135 Signed Impressions: Service Date/Time: Friday, December 29, 2017 12:04 - CONCLUSION: No acute disease. Narayan Parry MD Lower Extremity Ultrasound 12/29/17 0000 Signed Impressions: Service Date/Time: Friday, December 29, 2017 23:08 - CONCLUSION: Negative for deep venous thrombosis. Adam Barr MD PE at Discharge Left foot and postop dressing, wound VAC in place, lying in bed, no acute distress Hospital Course Pt was admitted, underwent incision and drainage with bone biopsy as well as a left second metatarsal head resection with wound VAC placement by podiatry. Sepsis had resolved. He also had a hx of opiod dependency and was cleared to resume home pain meds upon discharge. Infectious disease was consulted and ultimately deemed the patient stable to be discharged on p.o. antibiotics. Patient has been maximal benefit from hospitalization is clinically stable for discharge with home care for wound VAC management. Pt Condition on Discharge: Stable Discharge Disposition: Disch w/ Home Health Serv Discharge Time: <= 30 minutes Discharge Instructions Follow up Referrals: PCP Follow-up - 1 Week with Podiatry @ [facility] with Yamileth Brown DPM New Medications: Cephalexin (Keflex) 500 Mg Capsule 500 MG PO Q8H for Infection for 14 Days, #42 CAP 0 Refills Metronidazole (Flagyl) 500 Mg Tab 500 MG PO QID for Infection for 14 Days, TAB 0 Refills Justin Chun MD Jan 06, 2018 12:39
== END 2018-01-06 16:19 | disposition home health service (06) | DRG 854 ==
LOC: NED 10:17 → NEDA 17:40 → NEPFCDU 19:08 → N07A 01-02 20:38
PROVIDERS: ADMIT Hospitalist; ATTEND Hospitalist
PROC: 0QBP0ZX Excision of Left Metatarsal, Open Approach, Diagnostic (ICD-10-PCS; principal; 2017-12-30)
PROC: 0JBR0ZZ Excision of Left Foot Subcutaneous Tissue and Fascia, Open Approach (ICD-10-PCS; 2017-12-30)
PROC: 0QBP0ZZ Excision of Left Metatarsal, Open Approach (ICD-10-PCS; 2018-01-03)
PROC: 0JBR0ZZ Excision of Left Foot Subcutaneous Tissue and Fascia, Open Approach (ICD-10-PCS; 2018-01-03)
DX: A41.4 Sepsis due to anaerobes (principal); N17.9 Acute kidney failure, unspecified; E11.52 Type 2 diabetes mellitus with diabetic peripheral angiopathy with gangrene; M86.172 Other acute osteomyelitis, left ankle and foot; E11.621 Type 2 diabetes mellitus with foot ulcer; F11.20 Opioid dependence, uncomplicated; L03.119 Cellulitis of unspecified part of limb; L02.612 Cutaneous abscess of left foot; L97.529 Non-pressure chronic ulcer of other part of left foot with unspecified severity; I25.10 Atherosclerotic heart disease of native coronary artery without angina pectoris; R65.20 Severe sepsis without septic shock; I10 Essential (primary) hypertension; E11.628 Type 2 diabetes mellitus with other skin complications; G89.29 Other chronic pain; M54.9 Dorsalgia, unspecified; L03.032 Cellulitis of left toe; E11.69 Type 2 diabetes mellitus with other specified complication; J44.9 Chronic obstructive pulmonary disease, unspecified; F17.200 Nicotine dependence, unspecified, uncomplicated; Z79.84 Long term (current) use of oral hypoglycemic drugs; Z82.49 Family history of ischemic heart disease and other diseases of the circulatory system; Z86.718 Personal history of other venous thrombosis and embolism; Z95.5 Presence of coronary angioplasty implant and graft; Z98.1 Arthrodesis status
CPT/HCPCS: 71046; 73630; 75635; 76937; 80048; 80053; 80202; 81001; 82948; 83605; 83735; 85025; 87015; 87040; 87070; 87077; 87086; 87102; 87116; 87185; 87205; 87206; 88304; 88305; 88307; 88311; 93005; 93880; 93923; 93971; J0696; J1815; J2250; J2543; J3370; J3480; J7030; J7050; L3260; Q9967